=== PATIENT | female | born 1950 | race Caucasian/White ===

== ENCOUNTER 2016-08-20 09:18 | Outpatient (CLI) | payer OTHER ==
--- NOTE | 2016-08-21 07:04 | CT Report ---
CT OF THE CHEST WITHOUT CONTRAST: 08/20/2016 CLINICAL INDICATION: A 66-year-old asymptomatic patient with [id number] history, current smoker, for lung cancer screening. COMPARISON: 09/01/[address] TECHNIQUE: Axial CT images of the chest without contrast, utilizing low-dose screening technique. FINDINGS: The heart and great vessels demonstrate mild atherosclerotic calcification. No hilar or mediastinal lymphadenopathy is present. The lungs demonstrate emphysema and bronchiectasis. PULMONARY NODULES: Medial left lower lobe 5 x 5 mm (axial image 135), anterior left lower lobe 6 x 3 mm (axial image 139), lateral left lower lobe 4 x 4 mm ( axial image 139), lateral left lower lobe 6 x 6 mm (axial image 131), anterior left upper lobe 6 x 3 mm (axial image 101), posterior right upper lobe adjacent to the minor fissure 6 x 6 mm (axial image 87), posterolateral right lower lobe 3 x 3 mm (axial image 113). No effusion or pneumothorax is present. The osseous structures demonstrate degenerative changes. Limited evaluation of upper abdominal structures demonstrates normal adrenal glands. IMPRESSION: MULTIPLE BILATERAL SMALL PULMONARY NODULES. THE LARGEST, IN THE LEFT LOWER LOBE, MEASURES 6 MM AVERAGE DIAMETER. RECOMMENDATION: SIX-MONTH LOW DOSE CHEST CT, TO EVALUATE FOR INTERVAL CHANGE. LUNG RADS CATEGORY 3-PROBABLE BENIGN. In accordance with CT protocol optimization, one or more of the following dose reduction techniques were utilized for this exam: automated exposure control, adjustment of mA and/or KV based on patient size, or use of iterative reconstructive technique. JOB #: [id number] EXT JOB #: [id number] [facility]
== END 2016-08-20 09:19 | disposition home or self-care (01) ==
LOC: DI 09:18
PROVIDERS: ATTEND Internal Medicine
DX: Z12.2 Encounter for screening for malignant neoplasm of respiratory organs (principal); R91.8 Other nonspecific abnormal finding of lung field; F17.210 Nicotine dependence, cigarettes, uncomplicated; M85.88 Other specified disorders of bone density and structure, other site; N95.8 Other specified menopausal and perimenopausal disorders
CPT/HCPCS: 77080; G0297

== ENCOUNTER 2016-08-20 09:19 | Outpatient (CLI) | payer OTHER ==
--- NOTE | 2016-08-21 07:17 | DEXA Report ---
DEXA SCAN: 08/20/2016 CLINICAL INDICATION: Osteopenia. TECHNIQUE: Dual energy x-ray absorptiometry (DXA) was performed on a [employer] system. Regions measured are the AP spine, femoral neck, and, if needed, forearm. FINDINGS: The data for the lumbar spine is as follows: REGION BMD (g/cm/cm) T-SCORE Z-SCORE L1 1.164 0.3 2.2 L2 1.432 1.9 3.9 L3 1.514 2.6 4.6 L4 1.479 2.3 4.3 TOTAL 1.423 2.0 4.0 NOTE: All evaluable vertebrae are used for classification. The data for the hip is as follows: REGION BMD (g/cm/cm) T-SCORE Z-SCORE Neck 0.871 -1.2 0.6 TOTAL 0.903 -0.8 0.7 NOTE: The femoral neck or total proximal femur, whichever is lowest, is used for classification. IMPRESSION: THE WHO CLASSIFICATION BASED ON THE INTERNATIONAL REFERENCE STANDARD IS OSTEOPENIA (REFERENCE LEFT FEMORAL NECK). THE FRACTURE RISK IS INCREASED. RECOMMENDATION: Patients with diagnosis of osteoporosis or osteopenia should have regular bone mineral density assessment. For those eligible for Medicare, routine testing is allowed once every 2 years. Testing frequency can be increased for patients who have rapidly progressing disease or for those who are receiving medical therapy to restore bone mass. COMMENT: World Health Organization (WHO) definitions for osteoporosis and osteopenia: NORMAL BMD: T-score at -1.0 or higher, fracture risk is low. OSTEOPENIA BMD: T-score between -1.0 and -2.5, fracture risk is increased. OSTEOPOROSIS BMD: T-score at -2.5 or lower, fracture risk high. National Osteoporosis Foundation recommends: 1. Obtain adequate dietary calcium (at least 1200 mg per day) and vitamin D (400 -800 international units per day). 2. Participate, as appropriate, in regular weightbearing and muscle- strengthening exercise. 3. Avoid tobacco use and reduce alcohol and caffeine intake. 4. For more detailed information see the website at www.NOF.org. MTDD
== END 2016-08-20 09:20 | disposition home or self-care (01) ==
LOC: DI 09:19
PROVIDERS: ATTEND Internal Medicine
DX: M85.88 Other specified disorders of bone density and structure, other site (principal); N95.8 Other specified menopausal and perimenopausal disorders
CPT/HCPCS: 77080

== ENCOUNTER 2017-01-03 16:00 | Outpatient (CLI) | payer OTHER | END 2017-01-03 16:01 | disposition critical access hospital (66) | LOC: EMS 16:00 | PROVIDERS: ATTEND Surgery | DX: R10.9 Unspecified abdominal pain (principal); R11.2 Nausea with vomiting, unspecified; R19.7 Diarrhea, unspecified; M54.5 Low back pain | CPT/HCPCS: A0425; A0427 ==

== ENCOUNTER 2017-01-03 16:36 | Emergency (ER) | payer OTHER ==
--- NOTE | 2017-01-03 16:43 | ED Physician Documentation ---
PD HPI NVD - Stated complaint Stated Complaint: N/V/D - History obtained from History obtained from: Patient - History of Present Illness Timing - onset: Today Timing - details: Abrupt onset, Still present Associated symptoms: Abdominal pain (cramping associated with the vomiting and diarrhea episodes.), Loss of appetite. No: Hematemesis, Hematochezia, Near syncope / syncope Contributing factors: No: Sick contact (has had some mild URI symptoms for 1-2 days, and then yesterday felt malaise and myalgias. No fever.), Bad food, Travel , Recent antibiotics Improved by: Vomiting, BM Worsened by: Eating Similar symptoms before: Has not had sx before Recently seen: Not recently seen Review of Systems Constitutional: reports: Myalgias. denies: Fever, Chills Nose: reports: Rhinorrhea / runny nose, Congestion Throat: denies: Sore throat Respiratory: denies: Cough GI: reports: Abdominal Pain (cramping through the day), Nausea, Vomiting, Diarrhea Neurologic: reports: Generalized weakness. denies: Focal weakness, Numbness, Near syncope PD PAST MEDICAL HISTORY - Past Medical History Cardiovascular: None Respiratory: None Neuro: None Endocrine/Autoimmune: None GI: None - Present Medications Home Medications: Ambulatory Orders Medication Instructions Recorded Confirmed Diphenoxylate HCl/Atropine 1 each PO Q6H PRN #10 tablet 01/03/17 [Diphenoxylate-Atrop 2.5-0.025] Ondansetron Odt [Zofran] 4 mg TL Q6H PRN #15 tablet 01/03/17 - Allergies Allergies/Adverse Reactions: Allergies Allergy/AdvReac Type Severity Reaction Status Date / Time No Known Drug Allergies Allergy Verified 01/03/17 16:44 PD ED PE NORMAL - Vitals Vital signs reviewed: Yes - General General: Alert and oriented X 3, Well developed/nourished - HEENT HEENT: Ears normal, Pharynx benign. No: Moist mucous membranes - Neck Neck: Supple, no meningeal sign, No adenopathy - Cardiac Cardiac: RRR, No murmur - Respiratory Respiratory: Clear bilaterally - Abdomen Abdomen: Normal bowel sounds, Soft, Non distended, No organomegaly, Other ( tender mid abdomen without guarding nor percussion tender. Not focally tender RUQ/RLQ. ) - Female Female : Deferred - Rectal Rectal: Deferred - Derm Derm: Normal color, Warm and dry - Extremities Extremities: No deformity, Normal ROM s pain, No edema, No calf tenderness / cord - Neuro Neuro: Alert and oriented X 3, No motor deficit, Normal speech Results - Vitals Vitals: Vital Signs - 24 hr 01/03/17 01/03/17 16:40 18:11 Temperature 36.5 C Heart Rate 98 84 Respiratory 16 16 Rate Blood Pressure 127/78 138/75 H O2 Saturation 97 94 Oxygen O2 Source Room air - Labs Labs: Laboratory Tests 01/03/17 01/03/17 17:47 17:47 WBC 12.2 H RBC 3.88 L Hgb 13.7 Hct 39.1 MCV 100.9 H MCH 35.3 H MCHC 35.0 RDW 12.9 Plt Count 176 MPV 9.2 Neut # 11.0 H Lymph # 0.9 L [place] # 0.3 Eos # 0.0 Baso # 0.1 Absolute Nucleated RBC 0.00 Nucleated RBC % 0.0 Sodium 134 L Potassium 3.6 Chloride 100 L Carbon Dioxide 23 Anion Gap 11.0 BUN 10 Creatinine 0.5 Estimated GFR (MDRD) 123 Glucose 124 H Calcium 8.5 Magnesium 1.7 Total Bilirubin 0.7 AST 73 H ALT 45 Alkaline Phosphatase 64 Total Protein 7.2 Albumin 4.1 Globulin 3.1 Albumin/Globulin Ratio 1.3 Lipase 29 PD MEDICAL DECISION MAKING - ED course Complexity details: reviewed results, re-evaluated patient (much improved symptoms with fluids and meds. Recheck abd with minimal central tenderness, still none RLQ/RUQ nor any peritoneal signs. No distension. She is taking PO fluids well and says "it feels good to drink something". ), considered differential, d/w patient, d/w family Departure - Departure Disposition: 01 Home, Self Care Clinical Impression: Nausea vomiting and diarrhea, Gastroenteritis Condition: Stable Record reviewed to determine appropriate education?: Yes Instructions: ED Food Poison Or Gastroenteritis Follow-Up: Bong Johns MD [Provider Admit Priv/Credential] - Prescriptions: Diphenoxylate HCl/Atropine [Diphenoxylate-Atrop 2.5-0.025] 1 each PO Q6H PRN # 10 tablet PRN Reason: Diarrhea Ondansetron Odt [Zofran] 4 mg TL Q6H PRN #15 tablet PRN Reason: Nausea / Vomiting Comments: Small frequent fluids tonight and bland foods such as rice breads or positives. Progress diet tomorrow as able. Ondansetron if needed for nausea. Lomotil if needed for diarrhea Mira. Tylenol or ibuprofen if needed for pain. You can add the hydrocodone later if needed for cramping pain or diarrhea. Recheck if not better over the next couple of days. This particularly would mean persistent cramps or diarrhea or just general illness.This seems likely to be a viral illness that would last for 1-2 days. However if it lasts longer or he develop other symptoms, high fevers, bloody stool, more focused pain or any other concerns then recheck Discharge Date/Time: 01/03/17 19:00
[2017-01-03] MEDS ORDERED: SODIUM CHLORIDE 0.9% 1,000 ML IV ONE ×2 (16:56→16:57)
[2017-01-03] MEDS ORDERED: HYDROmorphone 0.5 MG/0.5 ML SYRINGE IVP STA (16:56)
[2017-01-03] MEDS ORDERED: ONDANSETRON 4 MG/2 ML VIAL IVP STA (16:56)
[2017-01-03] MEDS ORDERED: FAMOTIDINE 20 MG/50 ML 50 ML IV ONE (16:57)
[2017-01-03] MEDS ORDERED: KETOROLAC 60 MG/2 ML VIAL IVP STA (16:57)
[2017-01-03] MEDS ORDERED: HYDROmorphone 1 MG/ML SYRINGE ONE (17:06)
[2017-01-03] MEDS ORDERED: SODIUM CHLORIDE FLUSH 0.9% 10 ML SYRINGE IVP ONE ×2 (17:07)
[2017-01-03] MEDS ORDERED: KETOROLAC 30 MG/ML VIAL ONE (17:07)
[2017-01-03] MEDS ORDERED: ONDANSETRON 4 MG/2 ML VIAL ONE (17:07)
[2017-01-03] MEDS ORDERED: FAMOTIDINE 20 MG/2 ML VIAL ONE (17:07)
[2017-01-03 17:57] LABS: BASOPHILS # (AUTO) 0.1 10^3/uL (0.0-0.1); BASOPHILS % (AUTO) 0.7 %; HCT - HEMATOCRIT 39.1 % (37.0-47.0); HGB - HEMOGLOBIN 13.7 g/dL (12.0-16.0); LYMPHOCYTES # (AUTO) 0.9 10^3/uL (1.5-3.5); MEAN CORPUSCULAR HEMOGLOBIN 35.3 pg (27.0-31.0); MEAN CORPUSCULAR VOLUME 100.9 fL (81.0-99.0); MEAN PLATELET VOLUME 9.2 fL (7.9-10.8); MONOCYTES # (AUTO) 0.3 10^3/uL (0.0-1.0); MONOCYTES % (AUTO) 2.5 %; NEUTROPHILS % (AUTO) 89.8 %; RED BLOOD COUNT 3.88 10^6/uL (4.20-5.40); RED CELL DISTRIBUTION WIDTH 12.9 % (12.0-15.0); UNCORRECTED WHITE BLOOD COUNT 12.2 x10^3/uL; WHITE BLOOD COUNT 12.2 x10^3/uL (4.8-10.8)
[2017-01-03 18:09] LABS: ALBUMIN/GLOBULIN RATIO 1.3 (1.0-2.2); BILIRUBIN,TOTAL 0.7 mg/dL (0.2-1.0); CALCIUM 8.5 mg/dL (8.5-10.3); CREATININE 0.5 mg/dL (0.4-1.0); MAGNESIUM 1.7 mg/dL (1.7-2.8); POTASSIUM 3.6 mmol/L (3.5-5.0); TOTAL PROTEIN 7.2 g/dL (6.7-8.2)
[2017-01-03 18:11] VITALS: BP 138/75
[2017-01-03] MEDS ORDERED: DIPHENOX/ATROPINE 2.5/0.025 MG TABLET PO STA (18:40)
[2017-01-03] MEDS ORDERED: ONDANSETRON ODT 4 MG Prepack 2 TL PRN (18:40)
[2017-01-03] MEDS ORDERED: HYDROcod/ACET 5/325 Prepack 6 PO ONE ×2 (18:40→18:50)
[2017-01-03] MEDS ORDERED: DIPHENOX/ATROPINE 2.5/0.025 MG TABLET PO ONE (18:50)
[2017-01-03] MEDS ORDERED: ONDANSETRON ODT 4 MG Prepack 2 TL ONE (18:51)
== END 2017-01-03 19:00 | disposition home or self-care (01) ==
LOC: EDUNIT# → ED 16:36
DX: K52.9 Noninfective gastroenteritis and colitis, unspecified (principal)
CPT/HCPCS: 36415; 80053; 83690; 83735; 85025; 96365; 96375; 99284; A9270; J1170

== ENCOUNTER 2019-01-04 08:01 | Outpatient (CLI) | payer MEDICARE ==
[2019-01-04 10:21] LABS: BASOPHILS # (AUTO) 0.1 10^3/uL (0.0-0.1); EOSINOPHILS # (AUTO) 0.2 10^3/uL (0.0-0.7); EOSINOPHILS % (AUTO) 2.3 %; HGB - HEMOGLOBIN 14.6 g/dL (12.0-16.0); LYMPHOCYTES # (AUTO) 2.4 10^3/uL (1.5-3.5); LYMPHOCYTES % (AUTO) 26.5 %; MEAN CORPUSCULAR HEMOGLOBIN 34.1 pg (27.0-31.0); MEAN CORPUSCULAR HGB CONC 33.2 g/dL (32.0-36.0); MEAN CORPUSCULAR VOLUME 102.8 fL (81.0-99.0); MEAN PLATELET VOLUME 11.7 fL (7.9-10.8); MONOCYTES # (AUTO) 0.7 10^3/uL (0.0-1.0); MONOCYTES % (AUTO) 7.9 %; NEUTROPHILS # (AUTO) 5.6 10^3/uL (1.5-6.6); NEUTROPHILS % (AUTO) 61.9 %; PLT - PLATELET COUNT 208 10^3/uL (130-450); RED BLOOD COUNT 4.28 10^6/uL (4.20-5.40); RED CELL DISTRIBUTION WIDTH 14.6 % (12.0-15.0)
[2019-01-04 10:57] LABS: ALBUMIN 4.9 g/dL (3.2-5.5); ALBUMIN/GLOBULIN RATIO 1.4 (1.0-2.2); ALKALINE PHOSPHATASE 102 IU/L (42-121); ALT ALANINE AMINOTRANSFERASE 52 IU/L (10-60); AST ASPARTATE AMINOTRANSFERASE 64 IU/L (10-42); BUN - BLOOD UREA NITROGEN 13 mg/dL (6-20); CALCIUM 9.6 mg/dL (8.5-10.3); CARBON DIOXIDE - CO2 29 mmol/L (21-32); CHLORIDE 102 mmol/L (101-111); CHOL/HDL RATIO 2.3 (<4.4); CHOLESTEROL 220 mg/dL; CREATININE 0.6 mg/dL (0.4-1.0); GFR - MDRD 99 (>89); GLUCOSE 97 mg/dL (70-100); HDL CHOLESTEROL 94 mg/dL; LDL CHOLESTEROL,CALCULATED 113 mg/dL; LDL/HDL RATIO 1.2 (<4.4); SODIUM 143 mmol/L (135-145); TOTAL PROTEIN 8.3 g/dL (6.7-8.2); VLDL CHOLESTEROL 13 mg/dL
== END 2019-01-04 08:02 | disposition home or self-care (01) ==
LOC: LAB.S 08:01
PROVIDERS: ATTEND Physician Assistant Medical
DX: E78.5 Hyperlipidemia, unspecified (principal); R42 Dizziness and giddiness
CPT/HCPCS: 36415; 80053; 80061; 83721; 85025

== ENCOUNTER 2019-01-04 08:12 | Outpatient (CLI) | payer MEDICARE ==
--- NOTE | 2019-01-05 09:58 | Mammography Report ---
Reason: SELF REFERRING MAMMO Z12.31 Procedure Date: 01/04/2019 Accession Number: [id number] / [id number] Procedure: MGS - Screening Mammo Dig Bilat CPT Code: FULL RESULT: EXAM: Screening Mammo Dig Bilat DATE: 01/04/2019 8:41 AM CLINICAL HISTORY: Screening encounter. TECHNIQUE: (B) - Bilateral CC and MLO views were obtained. COMPARISON: 07/29/2015. PARENCHYMAL PATTERN: (A) - The breast(s) demonstrate(s) scattered fibroglandular densities. FINDINGS: In the right retroconal breast 3.2 cm from the nipple is a new 0.5 cm nodule, partially obscured with associated calcification which requires additional mammographic and ultrasound evaluation for characterization, 10:00 position. There are no suspicious masses, calcifications, or areas of distortion in the left breast. IMPRESSION: Incomplete examination. BI-RADS category 0. RECOMMENDATION: (ADDMU) - Additional views using both Mammography and Ultrasound recommended. Right breast. BI-RADS CATEGORY: (0) - Incomplete Examination - need additional evaluation. STANDARD QUALIFYING STATEMENTS: 1. This examination was reviewed with the aid of Computer-Aided Detection (CAD). 2. A negative or benign imaging report should not preclude biopsy if clinically suspicious findings are present. 3. Dense breasts may obscure an underlying neoplasm. 4. This examination was reviewed without the aid of 3D breast imaging (tomosynthesis).
== END 2019-01-04 08:13 | disposition home or self-care (01) ==
LOC: DI.S 08:12
DX: Z12.31 Encounter for screening mammogram for malignant neoplasm of breast (principal); R92.8 Other abnormal and inconclusive findings on diagnostic imaging of breast
CPT/HCPCS: 77067

== ENCOUNTER 2019-01-20 11:48 | Outpatient (CLI) | payer MEDICARE ==
--- NOTE | 2019-01-20 15:48 | Mammography Report ---
Reason: ABN MAMMO - SPEC VIEWS RT Procedure Date: 01/20/2019 Accession Number: [id number] / [id number] Procedure: BRIANNE - Diag Special Views Dig RT CPT Code: Final Report FULL RESULT: EXAM: Diag Special Views Dig RT, Breast Unilateral Limited DATE: 01/20/2019 1:14 PM CLINICAL HISTORY: Follow-up abnormal mammogram of 01/04/2019 COMPARISON: 01/04/2019 TECHNIQUE: (R) - Right CC and MLO views were obtained. FINDINGS: The right breast density described on the prior mammogram report almost completely dissipates on additional imaging. One punctate benign-appearing calcification is present. RIGHT BREAST ULTRASOUND: TECHNIQUE: Real-time scanning by the mixing plant dumper with saved static images reviewed. FINDINGS: Corresponding to the mammographic finding in the 10:00 position right breast 2 cm from the nipple there is a 4 x 3 x 2 mm hypoechoic well-circumscribed ovoid lesion with small echogenic vascular hilum consistent with a lymph node IMPRESSION: Benign findings. BI-RADS category 2. Right breast RECOMMENDATION: (ANNUAL) - Recommend routine annual screening mammography. BI-RADS CATEGORY: (2) - Benign Findings. STANDARD QUALIFYING STATEMENTS: 1. This examination was not reviewed with the aid of Computer-Aided Detection (CAD). 2. A negative or benign imaging report should not preclude biopsy if clinically suspicious findings are present. 3. Dense breasts may obscure an underlying neoplasm. 4. This examination was reviewed with the aid of 3D breast imaging (tomosynthesis).
== END 2019-01-20 11:49 | disposition home or self-care (01) ==
LOC: DI 11:48
PROVIDERS: ATTEND Physician Assistant Medical
DX: R92.8 Other abnormal and inconclusive findings on diagnostic imaging of breast (principal)
CPT/HCPCS: 76642

== ENCOUNTER 2019-07-21 02:56 | Outpatient (CLI) | payer MEDICARE | END 2019-07-21 02:57 | disposition EMS.NT | LOC: EMS 02:56 | PROVIDERS: ATTEND Surgery | DX: H57.12 Ocular pain, left eye (principal) ==

== ENCOUNTER 2019-10-03 09:25 | Outpatient (CLI) | payer MEDICARE | END 2019-10-03 23:59 | disposition home or self-care (01) | LOC: COV 09:25 | PROVIDERS: ATTEND Family Medicine | DX: R05 Cough (principal); M79.10 Myalgia, unspecified site; R68.83 Chills (without fever); J02.9 Acute pharyngitis, unspecified ==

== ENCOUNTER 2019-12-05 10:54 | Outpatient (CLI) | payer MEDICARE ==
[2019-12-05 16:06] LABS: H. PYLORIS ANTIGEN STL NEGATIVE (Negative)
== END 2019-12-05 10:55 | disposition home or self-care (01) ==
LOC: RT 10:54
PROVIDERS: ATTEND Surgery
DX: Z01.818 Encounter for other preprocedural examination (principal); R06.2 Wheezing; Z12.11 Encounter for screening for malignant neoplasm of colon
CPT/HCPCS: 81599; 87177; 87209; 87338; 93005

== ENCOUNTER 2019-12-07 12:22 | Day surgery (SDC) | payer MEDICARE ==
[2019-12-07] MEDS ORDERED: LACTATED RINGERS 1,000 ML IV ONE ×2 (12:57→15:34)
--- NOTE | 2019-12-07 13:26 | ANESTHESIA ---
Pre-Anesthesia VS, & Labs - Diagnosis screening, diarrhea - Procedure colonoscopy Vital Signs: Temp Pulse Resp BP Pulse Ox 36.2 C L 77 20 160/84 H 97 12/07/19 12:30 12/07/19 12:30 12/07/19 12:30 12/07/19 12:30 12/07/19 12:30 Height: 5 ft 7.5 in Weight (kg): 58.9 kg Body Mass Index: 20.0 BMI Classification: Healthy weight - NPO >8 hours - Is Patient ?: No - Lab Results Lab results reviewed: Yes Home Medications and Allergies Home Medications: Ambulatory Orders Atorvastatin Calcium 40 mg PO DAILY 11/30/19 Atorvastatin Calcium 40 mg PO DAILY 11/30/19 Allergies/Adverse Reactions: Allergies Allergy/AdvReac Type Severity Reaction Status Date / Time No Known Drug Allergies Allergy Verified 01/03/17 16:44 Anes History & Medical History - Anesthetic History Anesthesia Complications: reports: No previous complications Family history of Anesthesia Complications: Denies Family history of Malignant Hyperthermia: Denies - Medical History Cardiovascular: reports: None, Murmur Pulmonary: reports: None Gastrointestinal: reports: None Urinary: reports: None Musculoskeletal: reports: None Endocrine/Autoimmune: reports: None Smoking Status: Current every day smoker - Surgical History Neurologic: Craniotomy Orthopedic: ACL reconstruction Results - Echo Results Echo Results: Report reviewed Exam General: Alert, Oriented x3, Cooperative, No acute distress Dental: WNL Mouth Openin Fingerbreadth Neck Mobility: Normal Mallampati classification: I Respiratory: Lungs clear, Normal breath sounds, No respiratory distress, No accessory muscle use Cardiovascular: Regular rate, Normal S1, Normal S2, No murmurs Plan Anesthesia Type: MAC Consent for Procedure(s) Verified and Reviewed: Yes Code Status: Attempt Resuscitation ASA classification: 2-Mild systemic disease Is this case an emergency?: No
[2019-12-07] MEDS ORDERED: ONDANSETRON 4 MG/2 ML VIAL IVP PRN (13:27)
[2019-12-07] MEDS ORDERED: HYDROmorphone 0.5 MG/0.5 ML SYRINGE IVP PRN (13:27)
[2019-12-07] MEDS ORDERED: METOCLOPRAMIDE 10 MG/2 ML VIAL IVP PRN (13:27)
[2019-12-07] MEDS ORDERED: ATROPINE ABBOJECT 1 MG/10 ML SYRINGE IVP PRN (13:27)
[2019-12-07] MEDS ORDERED: NALOXONE 0.4 MG/ML VIAL IVP PRN (13:27)
[2019-12-07] MEDS ORDERED: fentaNYL 100 MCG/2 ML VIAL IVP PRN (13:27)
[2019-12-07] MEDS ORDERED: ePHEDrine 50 MG/ML VIAL IVP PRN (13:27)
[2019-12-07] MEDS ORDERED: MORPHINE 2 MG/ML CARPUJECT IVP PRN (13:27)
[2019-12-07] MEDS ORDERED: LACTATED RINGERS 1,000 ML IV SCH (14:00)
[2019-12-07 16:04] VITALS: BP 133/69
--- NOTE | 2019-12-07 16:04 | ANESTHESIA POST OP EVALUATION ---
Anesthesia Post Eval - Post Anesthesia Eval Vitals: Last Vital Signs Temp 36.6 C 12/07/19 15:34 Pulse 85 12/07/19 15:45 Resp 21 12/07/19 15:45 BP 134/73 H 12/07/19 15:45 Pulse Ox 96 12/07/19 15:45 CV Function Including HR & BP: positive: Stable Pain Control: positive: Satisfactory Nausea & Vomiting: positive: Negative Mental Status: positive: Baseline Respiratory Status: Airway Patent Hydration Status: Satisfactory Anesthesia Complications: positive: None
== END 2019-12-07 12:23 | disposition home or self-care (01) ==
LOC: SDS 12:22
PROVIDERS: ATTEND Surgery
PROC: 0DJD8ZZ Inspection of Lower Intestinal Tract, Via Natural or Artificial Opening Endoscopic (ICD-10-PCS; principal; 2019-12-07 13:30)
DX: K59.8 Other specified functional intestinal disorders (principal); K64.4 Residual hemorrhoidal skin tags; K64.8 Other hemorrhoids; R06.02 Shortness of breath; F17.210 Nicotine dependence, cigarettes, uncomplicated
CPT/HCPCS: 45378; J7120

== ENCOUNTER 2020-08-22 10:04 | Outpatient (CLI) | payer MEDICARE ==
[2020-08-22 15:16] LABS: BASOPHILS # (AUTO) 0.1 10^3/uL (0.0-0.1); EOSINOPHILS # (AUTO) 0.1 10^3/uL (0.0-0.7); EOSINOPHILS % (AUTO) 1.7 %; HCT - HEMATOCRIT 44.9 % (37.0-47.0); HGB - HEMOGLOBIN 14.7 g/dL (12.0-16.0); LYMPHOCYTES # (AUTO) 2.6 10^3/uL (1.5-3.5); LYMPHOCYTES % (AUTO) 31.2 %; MEAN CORPUSCULAR HGB CONC 32.7 g/dL (32.0-36.0); MEAN CORPUSCULAR VOLUME 103.9 fL (81.0-99.0); MEAN PLATELET VOLUME 12.6 fL (7.9-10.8); MONOCYTES # (AUTO) 0.6 10^3/uL (0.0-1.0); MONOCYTES % (AUTO) 7.5 %; NEUTROPHILS # (AUTO) 4.8 10^3/uL (1.5-6.6); NEUTROPHILS % (AUTO) 58.4 %; PLT - PLATELET COUNT 206 10^3/uL (130-450); RED BLOOD COUNT 4.32 10^6/uL (4.20-5.40); RED CELL DISTRIBUTION WIDTH 12.9 % (12.0-15.0); WHITE BLOOD COUNT 8.3 x10^3/uL (4.8-10.8)
[2020-08-22 15:33] LABS: ALBUMIN 4.5 g/dL (3.2-5.5); ALBUMIN/GLOBULIN RATIO 1.2 (1.0-2.2); ALKALINE PHOSPHATASE 133 IU/L (42-121); ALT ALANINE AMINOTRANSFERASE 72 IU/L (10-60); AST ASPARTATE AMINOTRANSFERASE 80 IU/L (10-42); BILIRUBIN,TOTAL 0.9 mg/dL (0.2-1.0); BUN - BLOOD UREA NITROGEN 11 mg/dL (6-20); CALCIUM 9.4 mg/dL (8.5-10.3); CARBON DIOXIDE - CO2 26 mmol/L (21-32); CHLORIDE 99 mmol/L (101-111); CHOL/HDL RATIO 4.1 (<4.4); CHOLESTEROL 268 mg/dL; CREATININE 0.6 mg/dL (0.4-1.0); GFR - MDRD 99 (>89); GLUCOSE 106 mg/dL (70-100); HDL CHOLESTEROL 65 mg/dL; LDL CHOLESTEROL,CALCULATED 174 mg/dL; LDL/HDL RATIO 2.7 (<4.4); POTASSIUM 3.5 mmol/L (3.5-5.0); SODIUM 138 mmol/L (135-145); TOTAL PROTEIN 8.2 g/dL (6.7-8.2); TRIGLYCERIDES 145 mg/dL; VLDL CHOLESTEROL 29 mg/dL
[2020-08-22 15:39] LABS: THYROID STIMULATING HORMONE 5.42 uIU/mL (0.34-5.60)
== END 2020-08-22 10:05 | disposition home or self-care (01) ==
LOC: LAB.S 10:04
PROVIDERS: ATTEND Registered Nurse
DX: N71.1 Chronic inflammatory disease of uterus (principal); R19.7 Diarrhea, unspecified; R06.02 Shortness of breath; I10 Essential (primary) hypertension; E78.5 Hyperlipidemia, unspecified; F17.200 Nicotine dependence, unspecified, uncomplicated
CPT/HCPCS: 36415; 80053; 80061; 83721; 84443; 85025

== ENCOUNTER 2020-10-10 11:06 | Outpatient (CLI) | payer MEDICARE ==
--- NOTE | 2020-10-10 15:55 | XRAY Report ---
PROCEDURE: Abdomen 2 View X-Ray INDICATIONS: ABD MASS TECHNIQUE: 2 views of the abdomen were acquired. COMPARISON: Pelvic ultrasound 11/22/2019 FINDINGS: Surgical changes and devices: None. Bowel: No pneumoperitoneum. The bowel gas pattern is normal. Soft tissues: Hepatic shadow appears enlarged. Calcification is noted within the pelvis suggestive of calcified fibroid. Bones: No suspicious bony abnormalities. IMPRESSION: Calcified mass within the pelvis suggestive of calcified fibroid. It is noted fibroids w ere noted on prior ultrasound although much smaller in size. CT abdomen and pelvis with contrast is r ecommended for further evaluation. Reviewed by: Krystal Weaver MD on 10/10/2020 3:54 PM PDT Approved by: Krystal Weaver MD on 10/10/2020 3:54 PM PDT Station ID: [id number]
== END 2020-10-10 11:07 | disposition home or self-care (01) ==
LOC: DI.S 11:06
PROVIDERS: ATTEND Registered Nurse
DX: R19.00 Intra-abdominal and pelvic swelling, mass and lump, unspecified site (principal)

== ENCOUNTER 2020-10-31 08:59 | Outpatient (CLI) | payer MEDICARE ==
[2020-10-31] MEDS ORDERED: IOPAMIDOL-300 100 ML VIAL ONE (09:09)
[2020-10-31] MEDS ORDERED: IOVERSOL 320 50 ML VIAL ONE (09:09)
[2020-10-31 09:39] LABS: CREATININE 0.7 mg/dL (0.4-1.0)
[2020-10-31] MEDS ORDERED: IOVERSOL 320 50 ML VIAL PO ONE (10:33)
[2020-10-31] MEDS ORDERED: IOPAMIDOL-300 100 ML VIAL IVP ONE (10:34)
--- NOTE | 2020-10-31 15:47 | CT Report ---
PROCEDURE: Abdomen/Pelvis W INDICATIONS: ABD MASS CONTRAST: IV CONTRAST: Isovue 300 ml: 100 PO CONTRAST: Optiray 320 ml50 TECHNIQUE: After the administration of IV and by mouth contrast, 5 mm thick sections acquired from the diaphragm s to the symphysis. 5 mm thick coronal and sagittal reformats were acquired. For radiation dose red uction, the following was used: automated exposure control, adjustment of mA and/or kV according to patient size. COMPARISON: CT chest 08/20/2016 FINDINGS: Image quality: Excellent. ABDOMEN: Lung bases: Lung bases the majority 4 mm nodule in the posterior lateral right lower lobe series 4 i mage 9. Immediately posterior to this focus a second nodule is identified measuring 3 mm. Within the left posterior lateral lobe there is a 8 mm nodule on series 4 image 27. A similar-appearing second n odule also within the posterior lateral left lower lobe measuring 6 mm seen on series 4 image 22. Jux ta fissural nodule is noted on the left measuring 5 mm on series 4 image 24. 2 mm nodule is present p osterior left lower lobe series 4 image 26. Nodules appear unchanged compared to 08/20/2016. Heart size is normal. Solid organs: Liver is enlarged measuring 22.3 cm. Hepatic steatosis is present. However, in additio n in the posterior lateral inferior right hepatic lobe most notably seen on series 3 images 38 throug h 55, there is heterogeneous infiltrative appearance of the hepatic parenchyma. The confluent area me asures approximately 9.9 cm AP by 8.5 cm transverse by 1.1 cm craniocaudal. Gallbladder is not visual ized. Biliary system is non dilated. Pancreas enhances normally. No adrenal nodules. Kidneys demo nstrate normal size and enhancement, without hydronephrosis. Peritoneum and bowel: Bowel loops demonstrate normal wall thickness and caliber. No free fluid or a ir. Nodes and vessels: No retroperitoneal or mesenteric adenopathy by size criteria. Aorta and inferior vena cava are normal in size. Miscellaneous: No ventral hernias. PELVIS: Genitourinary: Bladder wall thickness is normal. Prominent calcification within the lower uterus costa ggestive of large fibroid. Prominent vascularity is noted within the lower pelvis. Miscellaneous: No inguinal hernias or adenopathy. Bones: No suspicious bony lesions. No vertebral body compression fractures. IMPRESSION: 1. Hepatomegaly with steatosis. In addition, there is an infiltrative appearance of heterogeneous att enuation/enhancement within the lateral inferior right hepatic lobe as to described above. While this could represent alterations in fatty infiltration/fat sparing, further investigation to exclude infi ltrative hepatic neoplasm is with MRI hepatic protocol is highly recommended. 2. Multiple pulmonary nodules, stable compared to 2017 and likely benign. 3. Uterine calcifications suggestive of fibroid. 4. Prominent pelvic vascular calcifications which can be seen with vascular congestion syndrome. Reviewed by: Krystal Weaver MD on 10/31/2020 3:46 PM PDT Approved by: Krystal Weaver MD on 10/31/2020 3:46 PM PDT Station ID: [id number]
== END 2020-10-31 09:00 | disposition home or self-care (01) ==
LOC: DI 08:59
PROVIDERS: ATTEND Registered Nurse
DX: K76.0 Fatty (change of) liver, not elsewhere classified (principal); R91.8 Other nonspecific abnormal finding of lung field; N85.8 Other specified noninflammatory disorders of uterus; I70.90 Unspecified atherosclerosis
CPT/HCPCS: 36415; 74177; 82565; Q9967

== ENCOUNTER 2020-11-19 13:35 | Outpatient (CLI) | payer MEDICARE | END 2020-11-19 13:36 | disposition home or self-care (01) | LOC: COV 13:35 | PROVIDERS: ATTEND Physician Assistant | DX: Z01.812 Encounter for preprocedural laboratory examination (principal); Z20.822 Contact with and (suspected) exposure to COVID-19 ==

== ENCOUNTER 2020-12-03 12:47 | Outpatient (CLI) | payer MEDICARE ==
[2020-12-03] MEDS ORDERED: GADOBUTROL 7.5 MMOL/7.5 ML VIAL ONE (13:16)
[2020-12-03 14:00] LABS: CREATININE 0.6 mg/dL (0.4-1.0)
== END 2020-12-03 12:48 | disposition home or self-care (01) ==
LOC: DI 12:47
PROVIDERS: ATTEND Registered Nurse
DX: R93.89 Abnormal findings on diagnostic imaging of other specified body structures (principal); Z53.9 Procedure and treatment not carried out, unspecified reason
CPT/HCPCS: 36415; 82565

== ENCOUNTER 2020-12-05 11:12 | Outpatient (CLI) | payer MEDICARE ==
[~2020-12-05 11:12] MED LIST: GADOBUTROL 7.5 MMOL/7.5 ML VIAL ONE
--- NOTE | 2020-12-05 14:10 | MRI Report ---
PROCEDURE: Abdomen W/WO INDICATIONS: LIVER LESION CONTRAST: IV CONTRAST: Gadavist ml: 5.9 TECHNIQUE: Coronal ultra fast SE, axial 2D spoiled GE in- and [id number]; axial breath-hold T2 fast SE. Dynam ic axial ultra fast GE during the administration of contrast; post-contrast coronal ultra fast GE or 2D spoiled GE with fat saturation from the hepatic dome to the iliac crests. Optional diffusion weig hted imaging and ADC may be performed. COMPARISON: CT abdomen pelvis 10/31/2020 FINDINGS: Image quality: Excellent. Lung bases: No basal pleural effusions. Heart size is normal. Solid organs: The liver is enlarged, particularly the caudal right hepatic lobe. The liver measures 23.2 cm in craniocaudal dimension. Mild parenchymal heterogeneity is present on T1 out of phase imagi ng at the liver dome, lateral left hepatic lobe, and markedly in the caudal right hepatic lobe where there are irregular, geographic, ill-defined areas of T1 signal loss. Aside from minor capsular bulgi ng, there is no mass effect related to these areas. Normal vessels course through these areas without diversion. No abnormal biliary dilatation. No increased enhancement in these areas, but rather sligh t hypoenhancement due to signal loss from fat saturation. There is no suspicious arterially enhancing liver lesion. There is a small bilobed cyst in the subcap sular segment VII towards the liver dome. No other liver lesions. The spleen is normal size. Gallbladder is normal. Biliary system is non dilated. Pancreas is shonda l in morphology. No adrenal nodules. Both kidneys demonstrate normal size and enhancement, without hydronephrosis. Nodes and vessels: No retroperitoneal or mesenteric adenopathy by size criteria. Aorta and inferior vena cava are normal in size. Bowel and peritoneum: Unenhanced bowel loops are normal in caliber. No free fluid. Bones and soft tissues: No ventral hernias. Bone marrow is normal in overall signal. IMPRESSION: 1. Hepatomegaly. 2. Benign hepatic parenchymal heterogeneity with varying degrees of steatosis in a geographic pattern , predominantly involving segments V and . Reviewed by: Destiny Fabian MD on 12/05/2020 2:09 PM PDT Approved by: Destiny Fabian MD on 12/05/2020 2:09 PM PDT Station ID: [id number]
[2020-12-05] MEDS ORDERED: GADOBUTROL 7.5 MMOL/7.5 ML VIAL IVP ONE (16:59)
== END 2020-12-05 11:13 | disposition home or self-care (01) ==
LOC: DI 11:12
PROVIDERS: ATTEND Registered Nurse
DX: K76.0 Fatty (change of) liver, not elsewhere classified (principal)
CPT/HCPCS: 74183; A9585

== ENCOUNTER 2022-01-19 08:00 | Outpatient (CLI) | payer MEDICARE ==
--- NOTE | 2022-01-19 16:01 | XRAY Report ---
PROCEDURE: Chest 2 View X-Ray INDICATIONS: ACUTE COUGH TECHNIQUE: 2 view(s) of the chest. COMPARISON: CT chest dated 08/20/2016. FINDINGS: Surgical changes and devices: None. Lungs and pleura: No pleural effusions or pneumothorax. Lungs are clear. Mediastinum: Mediastinal contours are normal. Heart size is normal. Bones and chest wall: No suspicious bony abnormalities. Soft tissues appear unremarkable. IMPRESSION: No acute cardiopulmonary pathology. Reviewed by: Cruz Reich MD on 01/19/2022 3:59 PM PDT Approved by: Cruz Reich MD on 01/19/2022 3:59 PM PDT Station ID: [id number]
== END 2022-01-19 23:59 | disposition home or self-care (01) ==
LOC: DI.S 08:00
PROVIDERS: ATTEND Physician Assistant
DX: R05.1 Acute cough (principal); F17.200 Nicotine dependence, unspecified, uncomplicated

== ENCOUNTER 2022-01-23 13:02 | Outpatient (CLI) | payer MEDICARE | END 2022-01-23 13:03 | disposition critical access hospital (66) | LOC: EMS 13:02 | DX: R06.02 Shortness of breath (principal); R50.9 Fever, unspecified; R05.9 Cough, unspecified; R11.2 Nausea with vomiting, unspecified | CPT/HCPCS: A0425; A0429 ==

== ENCOUNTER 2022-01-23 13:35 | Inpatient (IN) | payer MEDICARE ==
--- NOTE | 2022-01-23 13:36 | ED Physician Documentation ---
PD HPI DYSPNEA - Stated complaint Stated Complaint: SOA - History obtained from History obtained from: Patient, EMS - History of Present Illness Timing - onset: How many weeks ago (2-3) Timing - onset during: Light activity Timing - duration: Weeks (2-3) Timing - details: Gradual onset, Still present Inciting event(s): URI (The patient has had a cough productive of clear sputum with dyspnea chills and malaise for 2 to 3 weeks. Seen 4 days ago in walk-in and treated with Zithromax, prednisone and an inhaler. She states she only use the inhaler twice as she felt she did not have the technique. No improvement.) Improved by: Rest Worsened by: Exertion, Coughing Associated symptoms: Cough. No: Hemoptysis, Wheezing (barking cough), Palpitations, Bilateral edema Similar symptoms before: Has not had sx before Recently seen: Clinic (Seen in walk-in clinic 4 days ago and again today. No improvement in symptoms. Had chest x-ray 4 days ago. Noted to be hypoxic at 84% at walk-in today and sent by EMS up here.) Review of Systems Constitutional: reports: Chills, Myalgias. denies: Fever Nose: reports: Congestion. denies: Rhinorrhea / runny nose Throat: denies: Sore throat Cardiac: denies: Chest pain / pressure, Palpitations, Pedal edema Respiratory: reports: Dyspnea, Cough GI: denies: Abdominal Pain, Nausea, Vomiting, Diarrhea Skin: denies: Rash, Lesions Neurologic: reports: Generalized weakness. denies: Altered mental status PD PAST MEDICAL HISTORY - Past Medical History Cardiovascular: None, Murmur Respiratory: None (No prior diagnosis of COPD but does have a long smoking history. Does have exertional dyspnea at times prior to this illness. Presumed COPD at walk-in 4 days ago.), COPD (likely but not formally Dx.) Neuro: Other (prior brain surgery (coiling of aneurysm) several years ago.) Endocrine/Autoimmune: None GI: None : None HEENT: Chronic vision loss, Other Psych: Depression, Anxiety Musculoskeletal: None - Past Surgical History Past Surgical History: No Ortho: ACL reconstruction Neuro: Craniotomy - Present Medications Home Medications: Ambulatory Orders Medication Instructions Recorded Confirmed Atorvastatin Calcium 40 mg PO DAILY 11/30/19 11/30/19 - Allergies Allergies/Adverse Reactions: Allergies Allergy/AdvReac Type Severity Reaction Status Date / Time No Known Drug Allergies Allergy Verified 01/23/22 13:50 - Social History Does the pt smoke?: No Smoking Status: Current every day smoker PD ED PE NORMAL - Vitals Vital signs reviewed: Yes - General General: Alert and oriented X 3, No acute distress (Repetitive cough that is very barky here in the ER. Interrupts her sentences.), Well developed/nourished - HEENT HEENT: Ears normal, Pharynx benign - Neck Neck: Supple, no meningeal sign - Cardiac Cardiac: RRR, No murmur - Respiratory Respiratory: No: Clear bilaterally (no coarse sounds. Some exp wheezing. Barking cough. ) - Abdomen Abdomen: Soft, Non tender - Derm Derm: Normal color, Warm and dry - Extremities Extremities: No tenderness to palpate, No edema, No calf tenderness / cord - Neuro Neuro: Alert and oriented X 3, No motor deficit, Normal speech Eye Opening: Spontaneous Motor: Obeys Commands Verbal: Oriented GCS Score: 15 Results - Vitals Vitals: Vital Signs - 24 hr 01/23/22 01/23/22 01/23/22 13:47 14:28 14:50 Temperature 36.7 C Heart Rate 100 92 Respiratory 20 22 Rate Blood Pressure 149/96 H O2 Saturation 90 L 85 L If not protocol 2 : Oxygen Flow, liters/minute 01/23/22 16:01 Temperature Heart Rate 95 Respiratory 16 Rate Blood Pressure 140/72 H O2 Saturation 93 If not protocol : Oxygen Flow, liters/minute Oxygen O2 Source Nasal cannula Oxygen Flow Rate 2 - Labs Labs: Laboratory Tests 01/23/22 01/23/22 01/23/22 14:10 14:10 14:10 WBC 8.1 RBC 4.05 L Hgb 14.2 Hct 42.6 MCV 105.2 H MCH 35.1 H MCHC 33.3 RDW 13.7 Plt Count 172 MPV 10.4 Neut # (Auto) 5.5 Lymph # (Auto) 1.8 [place] # (Auto) 0.7 Eos # (Auto) 0.1 Baso # (Auto) 0.0 Absolute Nucleated RBC 0.00 Nucleated RBC % 0.0 Sodium 134 L Potassium 3.5 Chloride 94 L Carbon Dioxide 28 Anion Gap 12.0 BUN 11 Creatinine 0.7 Estimated GFR (MDRD) 82 L Glucose 114 H Calcium 8.9 Magnesium 1.9 Total Bilirubin 0.4 AST 77 H ALT 76 H Alkaline Phosphatase 165 H B-Natriuretic Peptide 226 H Total Protein 7.6 Albumin 4.2 Globulin 3.4 Albumin/Globulin Ratio 1.2 Lipase 39 - Rads (name of study) chest xray Radiology: Prelim report reviewed (hyperinflated, no infiltrates.), See rad report PD MEDICAL DECISION MAKING - ED course Complexity details: re-evaluated patient (She has less barking cough now after nebulizer treatments and steroids. However taking her off oxygen leads to desaturation to 85% with an 2 to 3 minutes. Resuming oxygen back to 93 to 95%.), considered differential, d/w patient, d/w family (spouse) ED course: The patient has no formal diagnosis of COPD but is a longtime smoker and hyperinflated on chest x-ray with wheezing and hypoxia in the setting of a recent URI. She has a barking cough that sounds almost croup-like. Her respiratory panel PCR is still pending but I presume its likely to be RSV but the results are still pending. No pneumonia. However she is still hypoxic and needs hospitalization for further treatment. Departure - Departure Disposition: 66 [facility] DC/Xfer Clinical Impression: COPD exacerbation, Lower respiratory infection, Hypoxia Condition: Stable Record reviewed to determine appropriate education?: Yes
[2022-01-23] MEDS ORDERED: IPRATROPIUM/ALBUTEROL 3 ML NEB INH STA (14:03)
[2022-01-23] MEDS ORDERED: BENZONATATE 100 MG CAPSULE PO STA (14:04)
[2022-01-23] MEDS ORDERED: DEXAMETHASONE 10 MG/ML VIAL IVP STA (14:04)
[2022-01-23 14:16] LABS: BASOPHILS % (AUTO) 0.4 %; EOSINOPHILS # (AUTO) 0.1 10^3/uL (0.0-0.7); EOSINOPHILS % (AUTO) 0.7 %; HCT - HEMATOCRIT 42.6 % (37.0-47.0); HGB - HEMOGLOBIN 14.2 g/dL (12.0-16.0); LYMPHOCYTES # (AUTO) 1.8 10^3/uL (1.5-3.5); LYMPHOCYTES % (AUTO) 22.4 %; MEAN CORPUSCULAR HEMOGLOBIN 35.1 pg (27.0-31.0); MEAN CORPUSCULAR HGB CONC 33.3 g/dL (32.0-36.0); MEAN CORPUSCULAR VOLUME 105.2 fL (81.0-99.0); MEAN PLATELET VOLUME 10.4 fL (7.9-10.8); MONOCYTES # (AUTO) 0.7 10^3/uL (0.0-1.0); MONOCYTES % (AUTO) 8.7 %; NEUTROPHILS # (AUTO) 5.5 10^3/uL (1.5-6.6); NEUTROPHILS % (AUTO) 67.4 %; PLT - PLATELET COUNT 172 10^3/uL (130-450); RED BLOOD COUNT 4.05 10^6/uL (4.20-5.40); RED CELL DISTRIBUTION WIDTH 13.7 % (12.0-15.0); WHITE BLOOD COUNT 8.1 x10^3/uL (4.8-10.8)
[2022-01-23 14:29] LABS: ALBUMIN 4.2 g/dL (3.2-5.5); ALBUMIN/GLOBULIN RATIO 1.2 (1.0-2.2); BILIRUBIN,TOTAL 0.4 mg/dL (0.2-1.0); CALCIUM 8.9 mg/dL (8.5-10.3); CREATININE 0.7 mg/dL (0.4-1.0); MAGNESIUM 1.9 mg/dL (1.7-2.8); POTASSIUM 3.5 mmol/L (3.5-5.0); TOTAL PROTEIN 7.6 g/dL (6.7-8.2)
--- NOTE | 2022-01-23 14:32 | XRAY Report ---
PROCEDURE: Chest 1 View X-Ray INDICATIONS: cough for 2 weeks, worsening TECHNIQUE: One view of the chest was acquired. COMPARISON: 01/19/2022 FINDINGS: Surgical changes and devices: None. Lungs and pleura: No pleural effusions or pneumothorax. Mild increased bronchial vascular markings i n bilateral hilar region are seen with mild bronchial wall thickening. No focal infiltrate Mediastinum: Mediastinal contours appear normal. Heart size is normal. Bones and chest wall: No suspicious bony lesions. Overlying soft tissues appear unremarkable. IMPRESSION: 1. Suggestion of mild reactive airway disease such as bronchitis or asthma. No focal infiltrate. No p leural effusion or pneumothorax. Reviewed by: Cruz Reich MD on 01/23/2022 2:30 PM PDT Approved by: Cruz Reich MD on 01/23/2022 2:30 PM PDT Station ID: [id number]
[2022-01-23] MEDS ORDERED: ACETAMINOPHEN 325 MG TABLET PO PRN (16:41)
[2022-01-23] MEDS ORDERED: ONDANSETRON 4 MG/2 ML VIAL IVP PRN (16:41)
[2022-01-23] MEDS ORDERED: NICOTINE 14 MG PATCH TOP STA (16:49)
[2022-01-23] MEDS ORDERED: guaiFENesin/CODEINE 5 ML UDC PO STA (16:50)
[2022-01-23 17:21] LABS: INR 0.9 (0.8-1.2); PT - PROTHROMBIN TIME 10.3 secs (9.9-12.6)
[2022-01-23 17:26] LABS: B. PARAPERTUSSIS- RESP PCR PAN NOT DETECTED; B. PERTUSSIS- RESP PCR PANEL NOT DETECTED; C. PNEUMONIAE- RESP PCR PANEL NOT DETECTED; CORONAVIRUS 229E-RESP PCR NOT DETECTED; CORONAVIRUS HKU1-RESP PCR NOT DETECTED; CORONAVIRUS NL63-RESP PCR NOT DETECTED; CORONAVIRUS OC43-RESP PCR NOT DETECTED; HUMAN METAPNEUMOVIRUS NOT DETECTED; INFLUENZA A- RESP PCR PANEL NOT DETECTED; INFLUENZA B - RESP PCR PANEL NOT DETECTED; M. PNEUMONIAE- RESP PCR PANEL NOT DETECTED; PARAINFLUENZA VIRUS 1 NOT DETECTED; PARAINFLUENZA VIRUS 2 NOT DETECTED; PARAINFLUENZA VIRUS 3 NOT DETECTED; PARAINFLUENZA VIRUS 4 NOT DETECTED; RHINOVIRUS/ENTEROVIRUS NOT DETECTED; RSV- RESP PCR PANEL NOT DETECTED; SARS-CoV-2 -RESP PCR PANEL NOT DETECTED
[2022-01-23] MEDS ORDERED: IPRATROPIUM/ALBUTEROL 3 ML NEB INH PRN (17:31)
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
[2022-01-23] MEDS ORDERED: LORazepam 2 MG/ML VIAL IVP PRN (17:56)
[2022-01-23] MEDS: cefTRIAXone 2 GM in SODIUM CHLORIDE 0.9% MINIBAG 100 ML IV SCH (18:15)
[2022-01-23] MEDS: SODIUM CHLORIDE FLUSH 0.9% 10 ML SYRINGE IVP SCH (18:15)
[2022-01-23] MEDS: SODIUM CHLORIDE 0.9% 1,000 ML IV SCH (18:15)
--- NOTE | 2022-01-23 18:43 | PHARMACY PROGRESS NOTE ---
- Best Possible Medication History Admit Date and Time: 01/23/22 1641 Processed by: Pharmacy Medication History completed: Yes Patient Interview: Completed Secondary Source(s): Insurance records As the person ultimately responsible for medication therapy, providers are able to order a medication from an existing home medication list in [facility] via the "Reconcile Routine" prior to Confirmation of that medication by systems support specialist. Such practice is discouraged except when the physician, in their clinical judgment, deems that a medical need exists for a medication without regard to previous use.
[2022-01-23] MEDS: IPRATROPIUM/ALBUTEROL 3 ML NEB INH SCH ×2 (18:46→19:12)
[2022-01-23] MEDS: BUDESONIDE 0.5 MG/2 ML NEB INH SCH (18:46)
[2022-01-23] MEDS: guaiFENesin/CODEINE 5 ML UDC PO PRN (20:12)
[2022-01-23] MEDS: methylPREDNISolone SUCCINATE 40 MG/ML VIAL IVP SCH (21:05)
[2022-01-23] MEDS: guaiFENesin 600 MG TABLET PO SCH (21:06)
[2022-01-23] MEDS: MONTELUKAST 10 MG TABLET PO SCH (21:06)
[2022-01-23] MEDS: chlordiazePOXIDE 5 MG CAPSULE PO SCH (21:06)
[2022-01-24] MEDS: guaiFENesin/CODEINE 5 ML UDC PO PRN ×4 (03:23→21:23)
[2022-01-24] MEDS: SODIUM CHLORIDE FLUSH 0.9% 10 ML SYRINGE IVP SCH ×3 (04:02→16:39)
[2022-01-24] MEDS: SODIUM CHLORIDE 0.9% 1,000 ML IV SCH ×2 (04:35→17:54)
[2022-01-24] MEDS: methylPREDNISolone SUCCINATE 40 MG/ML VIAL IVP SCH ×3 (05:02→21:23)
[2022-01-24 05:38] LABS: BASOPHILS % (AUTO) 0.2 %; EOSINOPHILS % (AUTO) 0.2 %; HCT - HEMATOCRIT 37.9 % (37.0-47.0); LYMPHOCYTES # (AUTO) 0.8 10^3/uL (1.5-3.5); MEAN CORPUSCULAR HEMOGLOBIN 36.3 pg (27.0-31.0); MEAN CORPUSCULAR HGB CONC 34.3 g/dL (32.0-36.0); MEAN CORPUSCULAR VOLUME 105.9 fL (81.0-99.0); MEAN PLATELET VOLUME 11.2 fL (7.9-10.8); MONOCYTES # (AUTO) 0.1 10^3/uL (0.0-1.0); NEUTROPHILS # (AUTO) 5.6 10^3/uL (1.5-6.6); PLT - PLATELET COUNT 174 10^3/uL (130-450); RED BLOOD COUNT 3.58 10^6/uL (4.20-5.40); RED CELL DISTRIBUTION WIDTH 13.7 % (12.0-15.0); WHITE BLOOD COUNT 6.6 x10^3/uL (4.8-10.8)
[2022-01-24 05:48] LABS: ALBUMIN 3.7 g/dL (3.2-5.5); BILIRUBIN,DIRECT 0.1 mg/dL (0.1-0.5); BILIRUBIN,TOTAL 0.5 mg/dL (0.2-1.0); CALCIUM 8.3 mg/dL (8.5-10.3); CREATININE 0.5 mg/dL (0.4-1.0); MAGNESIUM 2.4 mg/dL (1.7-2.8); POTASSIUM 3.9 mmol/L (3.5-5.0)
[2022-01-24] MEDS: BUDESONIDE 0.5 MG/2 ML NEB INH SCH ×2 (07:36→19:00)
[2022-01-24] MEDS: IPRATROPIUM/ALBUTEROL 3 ML NEB INH SCH ×4 (07:36→19:00)
[2022-01-24] MEDS: cefTRIAXone 2 GM in SODIUM CHLORIDE 0.9% MINIBAG 100 ML IV SCH (09:07)
[2022-01-24] MEDS: chlordiazePOXIDE 5 MG CAPSULE PO SCH ×2 (09:08→21:23)
[2022-01-24] MEDS: AZITHROMYCIN 250 MG TABLET PO SCH ×2 (09:08→09:14)
[2022-01-24] MEDS: guaiFENesin 600 MG TABLET PO SCH ×2 (09:09→21:23)
[2022-01-24] MEDS: ENOXAPARIN 40 MG/0.4 ML SYRINGE SUBQ SCH (09:09)
[2022-01-24] MEDS: THIAMINE 100 MG TABLET PO SCH (09:22)
[2022-01-24] MEDS: NICOTINE 14 MG PATCH TOP SCH (09:24)
--- NOTE | 2022-01-24 13:00 | PROVIDER PROGRESS NOTE ---
Hospitalist Cross-cover Note - Cross-Cover Note Cross-Cover Note: As a Board-certified Engineering Inspector, credentialed to interpret Echoes here, I performed a complete bedside Echo. Indication: V. tach. The Echo showed: Moderate left atrial enlargement and moderate right atrial enlargement. Normal aortic root diameter. Normal left ventricular size with upper limit of normal wall thickness, normal LV contractility with EF 60%. A senile sigmoid septum is noted (normal variant). Diastolic function could not be determined. Normal right ventricular size and wall thickness. Normal right ventricular contractility. Myxomatous thickening of both mitral leaflets is seen with moderate mitral valve prolapse but no flail portions. Doppler exam reveals severe mitral regurgitation which is eccentric, laterally directed, and curls around and fills the entire dilated left atrium. Tricuspid valve appears structurally normal. Aortic valve is trileaflet and mildly thickened. Pulmonic valve poorly seen. These valves have normal function by Doppler. No pericardial effusion.
--- NOTE | 2022-01-24 13:01 | PROVIDER PROGRESS NOTE ---
Assessment/Plan - Problem List (1) Acute respiratory failure with hypoxia Assessment/Plan: The impression was that her hypoxia is caused by her COPD exacerbation. But, given her mildly elevated BNP, my concern is for some component of CHF as well. Will continue with supplemental O2 and treat the underlying COPD, keeping sats >88%. She may be a future candidate for home O2 which was discussed with her to consider. An Echo will be done today to evaluate for systolic heart failure. (2) COPD exacerbation Conclusion/Plan: Patient had severe wheezing and severely poor air movement yesterday, which has improved to minimal wheezing and slightly improved air mvm today. There are no infiltrates on chest x-ray but she has bronchitis by clinical picture. Will continue with nebulized bronchodilators every 4 hours as needed and 4 times daily scheduled. Will give Pulmicort via nebulizer twice daily. She is on IV Solumedrol 80 mg 3 times daily. We are give empiric antibiotics, 1 more dose of Zithromax, that she was due for, plus giving IV ceftriaxone empirically. Continue supplemental oxygen, weaning down as tolerated. Importance of smoking cessation was discussed with the patient. (3) VTach Conclusion/Plan: She had a 25-beat run of monomorphic VT at a rate of 115. She did not feel it; she was walking to the bathroom at the time, with the aide of her RN. Today she disclosed to me that she gets palpitations that occur at any time, they do not cause dizziness and she has never had syncope. She has never had them worked up. She then reminds me that heart disease runs in the family (father had multiple heart attacks, 2 sisters have heart disease). She then gave me permission to call her twin sister and this sister's (Juana and Emigdio Alcaraz) to get more information about her and the family, because she cannot remember details. I called them at home ([phone]). I spoke to them both. This sister has cardiomyopathy with normal coronary arteries and has a BiV ICD and another sister has a "stiff heart" and sevreal uncles plus their dad had heart attacks. Will obtain an Echo stat. Will check troponins today and also assure that her potassium and magnesium are within normal range. Continue to monitor on telemetry. (4) Tobacco use Conclusion/Plan: She is a heavy smoker of 2PPD. Importance of smoking cessation was discussed with the patient at admission She is getting a nicotine patch while she is here (5) Elevated LFTs Conclusion/Plan: She admitted to 2 glasses of wine every night and thinks maybe she has had shaky withdrawal symptoms sometimes. This may be the cause of increased LFTs Alternatively, the increased LFTs could be from right heart overload related to her MVP with probable significant longstanding MR. An Echo will be done today. (6) Alcohol use Conclusion/Plan: She admits to 2 glasses of wine every night and thinks maybe she has had shaky withdrawal symptoms sometimes. Her LFTs and MCV are levetaed. Will order CIWA protocol and as needed Ativan IV. Will also give a scheduled dose of Librium while she is here, to prevent withdrawl and will help her sleep. Will follow LFTs intermittently. Her twin sister, Juana, and Juana's Emigdio Alcaraz told me more information about the pt: They feel that the patient is an alcoholic. She probably drinks more than 4 glasses of wine a day. They "know not to call her after 2 PM because she is incoherent when speaking on the phone". Both the patient and the patient's drink heavily. (7) MVP (mitral valve prolapse) Conclusion/Plan: She has a loud systolic murmur. Significant mitral regurgitation due to mitral valve prolapse was seen on her last Echo which was done here over 5 years ago. She has no peripheral edema but does have increased LFTs which could be from right heart overload. An Echo needs to be done, which I will do myself today. This needs Cardiology management after discharge, to determine timing of mitral valve repair. This was discussed with the pt. (8) Poor memory Conclusion/Plan: This developed after she had a craniotomy and needed cerebral aneurysms clipped (or coils placed). She relies on her and other family members for details and keeps a lot of things written down she said. She then gave me permission to call her twin sister and this sister's (Juana and Emigdio Alcaraz) to get more information about her and the family because she cannot remember details. - Current Meds Current Meds: Current Medications Generic Name Dose Route Start Last Admin Trade Name Freq PRN Reason Stop Dose Admin Acetaminophen 650 mg 01/23/22 16:41 01/24/22 03:23 Acetaminophen 325 Mg Tablet PO 650 mg Q4HR PRN Administration Pain 1 to 4, or Fever Albuterol/Ipratropium 3 ml 01/23/22 17:31 01/24/22 11:15 Ipratropium/Albuterol 3 Ml Neb INH 3 ml RTQID PENG Administration Azithromycin 250 mg 01/24/22 09:00 01/24/22 09:14 Azithromycin 250 Mg Tablet PO 01/25/22 00:01 250 mg DAILY PENG Administration Budesonide 0.5 mg 01/23/22 19:00 01/24/22 07:36 Budesonide 0.5 Mg/2 Ml Neb INH 0.5 mg RTBID PENG Administration Chlordiazepoxide HCl 10 mg 01/23/22 21:00 01/24/22 09:08 Chlordiazepoxide 5 Mg Capsule PO 10 mg BID PENG Administration Enoxaparin Sodium 40 mg 01/24/22 09:00 01/24/22 09:09 Enoxaparin 40 Mg/0.4 Ml Syringe SUBQ 40 mg DAILY PENG Administration Guaifenesin 600 mg 01/23/22 21:00 01/24/22 09:09 Guaifenesin 600 Mg Tablet PO 600 mg BID PENG Administration Guaifenesin/Codeine Phosphate 5 ml 01/23/22 19:30 01/24/22 09:08 Guaifenesin/Codeine 5 Ml Udc PO 5 ml Q6HR PRN Administration Cough Ceftriaxone Sodium 2 gm/ 100 mls @ 200 mls/hr 01/23/22 16:47 01/24/22 09:40 Sodium Chloride IV Infused DAILY PENG Infusion Methylprednisolone 80 mg 01/23/22 22:00 01/24/22 05:02 Methylprednisolone Succinate 40 Mg/Ml Vial IVP 80 mg TID PENG Administration Montelukast Sodium 10 mg 01/23/22 21:00 01/23/22 21:06 Montelukast 10 Mg Tablet PO 10 mg QPM PENG Administration Nicotine 1 patch 01/24/22 09:00 01/24/22 09:24 Nicotine 14 Mg Patch TOP 1 patch DAILY PENG Administration Sodium Chloride 10 ml 01/23/22 17:00 01/24/22 09:09 Sodium Chloride Flush 0.9% 10 Ml Syringe IVP Not Given 0100,0900,[facility] Thiamine HCl 100 mg 01/24/22 10:00 01/24/22 09:22 Thiamine 100 Mg Tablet PO 100 mg DAILY PENG Administration - Lab Result Fish Bone Diagrams: 01/24/22 05:00 01/24/22 05:00 - Additional Planning My Orders: My Active Orders 01/23/22 Dinner Regular Diet [DIET] 01/23/22 16:41 Activity Orders [RC] Q2HR IO [RC] IOSHIFT Incentive Spirometry - RT [RC] TID Initiate Bowel Care Protocol [RC] .protocol Initiate Bronchodialator Miesha [RC] .PROTOCOL Initiate Line Care Protocol [RC] QSHIFT Initiate Personal Care Protoco [RC] .protocol Initiate Secretion Clearance P [RC] .PROTOCOL Oxygen Therapy [RC] .PRN Telemetry- [RC] Q4HR Vital Signs [RC] Q4HR Acetaminophen [Tylenol] 650 mg PO Q4HR PRN Ondansetron Inj [Zofran Inj] 4 mg IVP Q6HR PRN Sodium Chloride Flush 0.9% [Normal Saline Flush 0.9%] 10 ml IVP PRN PRN Code Status [OTHERS] Routine Condition of Patient [OTHERS] Routine DVT Prophylaxis [OTHERS] Routine 01/23/22 16:43 Daily Weight [RC] 0600 IV Insert [RC] .ONCE 01/23/22 16:45 Initiate Line Care Protocol [RC] QSHIFT 01/23/22 16:47 cefTRIAXone [Rocephin] 2 gm Sodium Chloride 0.9% Minibag [Normal Saline 0.9% Minibag] 100 ml IV DAILY 01/23/22 17:00 Sodium Chloride Flush 0.9% [Normal Saline Flush 0.9%] 10 ml IVP 0100,0900,1700 01/23/22 17:31 Resp Teach Nebulizer/MDI [RC] .ONCE Ipratropium/Albuterol [Duoneb] 3 ml INH Q4HR PRN Ipratropium/Albuterol [Duoneb] 3 ml INH RTQID 01/23/22 17:32 Nebulizer/MDI Tx. [RC] QID Resp Teach Nebulizer/MDI [RC] .ONCE 01/23/22 17:56 CIWA - AR Score Card [RC] Q4HR LORazepam INJ [Ativan Inj (Vial)] 1 mg IVP Q30M PRN 01/23/22 19:00 Budesonide [Pulmicort] 0.5 mg INH RTBID 01/23/22 19:30 guaiFENesin/CODEINE [Robitussin AC] 5 ml PO Q6HR PRN 01/23/22 21:00 Montelukast [Singulair] 10 mg PO QPM chlordiazePOXIDE [Librium] 10 mg PO BID guaiFENesin [Mucinex] 600 mg PO BID 01/23/22 22:00 methylPREDNISolone SUCCINATE [SOLU-Medrol (40MG VIAL)] 80 mg IVP TID 01/24/22 09:00 Azithromycin [Zithromax] 250 mg PO DAILY Enoxaparin [Lovenox] 40 mg SUBQ DAILY Nicotine 14 mg Patch [Nicoderm] 1 patch TOP DAILY 01/24/22 09:05 Sodium Chloride 0.9% [Normal Saline 0.9%] 1,000 ml IV 60 mls/hr 01/24/22 10:00 Thiamine [Vitamin B-1] 100 mg PO DAILY 01/25/22 05:00 LIVER PANEL [CHEM] DAILYLAB 01/26/22 05:00 LIVER PANEL [CHEM] DAILYLAB 01/27/22 05:00 LIVER PANEL [CHEM] DAILYLAB Subjective - Subjective Patient Reports: Feeling Better, Cough, Shortness of Breath Objective Vital Signs: Vital Signs - 24 hr 01/23/22 01/23/22 01/23/22 13:47 14:28 14:50 Temperature 36.7 C Heart Rate 100 92 Heart Rate [ Brachial] Heart Rate [ Monitoring electrodes] Respiratory 20 22 Rate Blood Pressure 149/96 H Blood Pressure [Right Brachial artery] O2 Saturation 90 L 85 L If not protocol 2 : Oxygen Flow, liters/minute 01/23/22 01/23/22 01/23/22 16:01 17:06 17:36 Temperature 37.1 C 36.7 C Heart Rate 95 85 Heart Rate [ Brachial] Heart Rate [ 90 Monitoring electrodes] Respiratory 16 17 16 Rate Blood Pressure 140/72 H 145/74 H Blood Pressure 139/83 H [Right Brachial artery] O2 Saturation 93 93 91 L If not protocol 2 3 : Oxygen Flow, liters/minute 01/23/22 01/23/22 01/23/22 18:22 18:45 20:51 Temperature 37.0 C Heart Rate 81 Heart Rate [ Brachial] Heart Rate [ 79 Monitoring electrodes] Respiratory 16 18 Rate Blood Pressure Blood Pressure 111/51 L [Right Brachial artery] O2 Saturation 96 If not protocol 3 2 2 : Oxygen Flow, liters/minute 01/24/22 01/24/22 01/24/22 00:05 05:00 07:38 Temperature 36.6 C 36.4 C L Heart Rate 63 Heart Rate [ 65 58 L Brachial] Heart Rate [ Monitoring electrodes] Respiratory 18 16 19 Rate Blood Pressure Blood Pressure 129/66 129/49 L [Right Brachial artery] O2 Saturation 98 93 If not protocol 2 2 : Oxygen Flow, liters/minute 01/24/22 01/24/22 01/24/22 07:41 08:05 11:19 Temperature 36.3 C L Heart Rate 71 Heart Rate [ 71 Brachial] Heart Rate [ Monitoring electrodes] Respiratory 20 20 Rate Blood Pressure Blood Pressure 130/62 [Right Brachial artery] O2 Saturation 92 If not protocol 2 2 2 : Oxygen Flow, liters/minute Oxygen O2 Source Nasal cannula Oxygen Flow Rate 2 I&O (Last 24 Hrs): Intake and Output Totals x24h 01/22/22 01/23/22 01/24/22 23:59 23:59 23:59 Intake Total 400 1580 Balance 400 1580 General: Alert, Oriented x3 HEENT: Mucous membr. moist/pink, Other (Hoarseness of voice) Neck: Supple, No JVD Neuro: Alert, Non Focal, Other (Poor memory) Cardiovascular: Regular rate, Other (3-4/6 syst murmur) Respiratory: Wheezes, Other (Slt better airmvm in all lung traylor, but still "tight") Abdomen: Normal bowel sounds, Soft Extremities: No clubbing, No edema, No tenderness/swelling - Results Results: Laboratory Results WBC 6.6 x10^3/uL (4.8-10.8) 01/24/22 05:00 RBC 3.58 10^6/uL (4.20-5.40) L 01/24/22 05:00 Hgb 13.0 g/dL (12.0-16.0) 01/24/22 05:00 Hct 37.9 % (37.0-47.0) 01/24/22 05:00 MCV 105.9 fL (81.0-99.0) H 01/24/22 05:00 MCH 36.3 pg (27.0-31.0) H 01/24/22 05:00 MCHC 34.3 g/dL (32.0-36.0) 01/24/22 05:00 RDW 13.7 % (12.0-15.0) 01/24/22 05:00 Plt Count 174 10^3/uL (130-450) 01/24/22 05:00 MPV 11.2 fL (7.9-10.8) H 01/24/22 05:00 Neut # (Auto) 5.6 10^3/uL (1.5-6.6) 01/24/22 05:00 Lymph # (Auto) 0.8 10^3/uL (1.5-3.5) L 01/24/22 05:00 Runnels # (Auto) 0.1 10^3/uL (0.0-1.0) 01/24/22 05:00 Eos # (Auto) 0.0 10^3/uL (0.0-0.7) 01/24/22 05:00 Baso # (Auto) 0.0 10^3/uL (0.0-0.1) 01/24/22 05:00 Absolute Nucleated RBC 0.00 x10^3/uL 01/24/22 05:00 Nucleated RBC % 0.0 /100WBC 01/24/22 05:00 PT 10.3 secs (9.9-12.6) 01/23/22 17:11 INR 0.9 (0.8-1.2) 01/23/22 17:11 Sodium 135 mmol/L (135-145) 01/24/22 05:00 Potassium 3.9 mmol/L (3.5-5.0) 01/24/22 05:00 Chloride 100 mmol/L (101-111) L 01/24/22 05:00 Carbon Dioxide 26 mmol/L (21-32) 01/24/22 05:00 Anion Gap 9.0 (6-13) 01/24/22 05:00 BUN 14 mg/dL (6-20) 01/24/22 05:00 Creatinine 0.5 mg/dL (0.4-1.0) 01/24/22 05:00 Estimated GFR (MDRD) 121 (>89) 01/24/22 05:00 Glucose 183 mg/dL (70-100) H 01/24/22 05:00 Calcium 8.3 mg/dL (8.5-10.3) L 01/24/22 05:00 Phosphorus 4.0 mg/dL (2.5-4.6) 01/24/22 05:00 Magnesium 2.4 mg/dL (1.7-2.8) 01/24/22 05:00 Total Bilirubin 0.5 mg/dL (0.2-1.0) 01/24/22 05:00 Direct Bilirubin 0.1 mg/dL (0.1-0.5) 01/24/22 05:00 AST 57 IU/L (10-42) H 01/24/22 05:00 ALT 61 IU/L (10-60) H 01/24/22 05:00 Alkaline Phosphatase 159 IU/L (42-121) H 01/24/22 05:00 B-Natriuretic Peptide 226 pg/mL (5-100) H 01/23/22 14:10 Total Protein 7.0 g/dL (6.7-8.2) 01/24/22 05:00 Albumin 3.7 g/dL (3.2-5.5) 01/24/22 05:00 Globulin 3.3 g/dL (2.1-4.2) 01/24/22 05:00 Albumin/Globulin Ratio 1.2 (1.0-2.2) 01/23/22 14:10 Lipase 39 U/L (22-51) 01/23/22 14:10 Nasal Adenovirus (PCR) NOT DETECTED 01/23/22 16:32 Nasal B. parapertussis DNA (PCR) NOT DETECTED 01/23/22 16:32 Nasal Coronavir 229E PCR NOT DETECTED 01/23/22 16:32 Nasal Coronavir HKU1 PCR NOT DETECTED 01/23/22 16:32 Nasal Coronavir NL63 PCR NOT DETECTED 01/23/22 16:32 Nasal Coronavir OC43 PCR NOT DETECTED 01/23/22 16:32 Nasal Enterovir/Rhinovir PCR NOT DETECTED 01/23/22 16:32 Nasal Influenza B PCR NOT DETECTED 01/23/22 16:32 Nasal Influenza A PCR NOT DETECTED 01/23/22 16:32 Nasal Parainfluen 1 PCR NOT DETECTED 01/23/22 16:32 Nasal Parainfluen 2 PCR NOT DETECTED 01/23/22 16:32 Nasal Parainfluen 3 PCR NOT DETECTED 01/23/22 16:32 Nasal Parainfluen 4 PCR NOT DETECTED 01/23/22 16:32 Nasal RSV (PCR) NOT DETECTED 11 16:32 Nasal B.pertussis DNA PCR NOT DETECTED 01/23/22 16:32 Nasal C.pneumoniae (PCR) NOT DETECTED 01/23/22 16:32 Mheul Human Metapneumo PCR NOT DETECTED 01/23/22 16:32 Nasal M.pneumoniae (PCR) NOT DETECTED 01/23/22 16:32 Nasal SARS-CoV-2 (PCR) NOT DETECTED 01/23/22 16:32 - Procedures Procedures: Procedures INSPECTION OF LOWER INTESTINAL TRACT, ENDO (12/07/19)
[2022-01-24] MEDS: BENZOCAINE/MENTHOL LOZENGE MM PRN (20:29)
[2022-01-24] MEDS: MONTELUKAST 10 MG TABLET PO SCH (21:23)
[2022-01-25] MEDS: SODIUM CHLORIDE FLUSH 0.9% 10 ML SYRINGE IVP SCH ×4 (00:35→23:25)
[2022-01-25] MEDS: BENZOCAINE/MENTHOL LOZENGE MM PRN ×4 (01:09→15:58)
[2022-01-25] MEDS: methylPREDNISolone SUCCINATE 40 MG/ML VIAL IVP SCH ×3 (05:38→21:01)
[2022-01-25 06:22] LABS: BASOPHILS % (AUTO) 0.2 %; HCT - HEMATOCRIT 37.2 % (37.0-47.0); HGB - HEMOGLOBIN 12.5 g/dL (12.0-16.0); LYMPHOCYTES # (AUTO) 1.1 10^3/uL (1.5-3.5); LYMPHOCYTES % (AUTO) 8.7 %; MEAN CORPUSCULAR HEMOGLOBIN 35.2 pg (27.0-31.0); MEAN CORPUSCULAR HGB CONC 33.6 g/dL (32.0-36.0); MEAN CORPUSCULAR VOLUME 104.8 fL (81.0-99.0); MEAN PLATELET VOLUME 10.8 fL (7.9-10.8); MONOCYTES # (AUTO) 0.8 10^3/uL (0.0-1.0); MONOCYTES % (AUTO) 6.2 %; NEUTROPHILS % (AUTO) 84.1 %; PLT - PLATELET COUNT 185 10^3/uL (130-450); RED BLOOD COUNT 3.55 10^6/uL (4.20-5.40); RED CELL DISTRIBUTION WIDTH 13.8 % (12.0-15.0); WHITE BLOOD COUNT 13.1 x10^3/uL (4.8-10.8)
[2022-01-25 06:35] LABS: ALBUMIN 3.6 g/dL (3.2-5.5); BILIRUBIN,DIRECT 0.1 mg/dL (0.1-0.5); BILIRUBIN,TOTAL 0.5 mg/dL (0.2-1.0); CALCIUM 8.7 mg/dL (8.5-10.3); CREATININE 0.5 mg/dL (0.4-1.0); POTASSIUM 3.5 mmol/L (3.5-5.0)
[2022-01-25] MEDS: BUDESONIDE 0.5 MG/2 ML NEB INH SCH ×2 (06:57→20:31)
[2022-01-25] MEDS: IPRATROPIUM/ALBUTEROL 3 ML NEB INH SCH ×4 (06:58→20:30)
[2022-01-25] MEDS: ENOXAPARIN 40 MG/0.4 ML SYRINGE SUBQ SCH (09:10)
[2022-01-25] MEDS: cefTRIAXone 2 GM in SODIUM CHLORIDE 0.9% MINIBAG 100 ML IV SCH (09:10)
[2022-01-25] MEDS: chlordiazePOXIDE 5 MG CAPSULE PO SCH ×2 (09:10→21:00)
[2022-01-25] MEDS: THIAMINE 100 MG TABLET PO SCH (09:10)
[2022-01-25] MEDS: guaiFENesin 600 MG TABLET PO SCH ×2 (09:10→21:00)
[2022-01-25] MEDS: NICOTINE 14 MG PATCH TOP SCH (09:17)
[2022-01-25] MEDS: SODIUM CHLORIDE 0.9% 1,000 ML IV SCH (10:18)
--- NOTE | 2022-01-25 11:12 | PROVIDER PROGRESS NOTE ---
Assessment/Plan - Problem List (1) Acute respiratory failure with hypoxia Assessment/Plan: The impression is that her hypoxia is caused by her COPD exacerbation. Will continue with supplemental O2 and treat the underlying COPD, keeping sats >88%. Tried to decrease to 2L today but needed to go up to 3L n.c. to reach a saturation of 90% Continue treatment of her COPD exacerbation She may be a future candidate for home O2 which was discussed with her at admission to consider. (2) COPD exacerbation Conclusion/Plan: Patient had severe wheezing and very poor air movement at admission, which has improved slightly to minimal wheezing and slightly improved air mvm yesterday and today. There were no infiltrates on chest x-ray but she has bronchitis by clinical picture. Will continue with nebulized bronchodilators every 4 hours as needed and 4 times daily scheduled. Also giving Pulmicort via nebulizer twice daily. She is on new Motelukast. She is on IV Solumedrol 80 mg 3 times daily and will start a taper to 40 mg tid. The steroids are making her emotional (tearful to me about her bad lifestyle today). We are giving empiric antibiotics; she got 4 days of Zithromax before admission so 1 more dose of Zithromax, that she was due for, plus we ordered IV cef triaxone empirically. Mucinex and Robitussin are helping the cough somewhat, but she has been coughing for 2 weeks and is hoarse Continue supplemental oxygen, weaning down as tolerated. Importance of smoking cessation was discussed with the patient. She reported today that the Nicotine patch is helping. I told her I suspect she needs 2-3 more days of hospital treatment at least, since COPD is slow to improve. This is her first ever hospitalization for COPD exacerbation. (3) Dizziness Conclusion/Plan: This is a new complaint today. During one of her episodes orthostatic vital signs were done and were completely WNL. I suspect it is the new high steroid along with codeine in her cough suppressants, that is making her "woozy", since it is not lightheadedness or near syncope. (4) VTach Conclusion/Plan: On 01/24, she had a 25-beat run of monomorphic VT at a rate of 115. She did not feel it; she was walking to the bathroom at the time, with the aide of her RN. She then disclosed to me that she gets palpitations that occur at any time, they do not cause dizziness and she has never had syncope. She has never had them worked up. She also reminded me that heart disease runs in the family (father had multiple heart attacks, 2 sisters have heart disease). Yesterday, she gave me permission to call her twin sister and this sister's (Juana and Emigdio Alcaraz) to get more information about her and the family, because she cannot remember details. I called them at home ([phone]). I spoke to them both. This sister has cardiomyopathy with normal coronary arteries and has a BiV ICD and another sister has a "stiff heart" and several uncles plus their dad had heart attacks. We did an Echo stat which showed normal LVEF but moderate MVP and severe MR We checked troponins and these were OK, also checked that her potassium and magnesium are within normal range. Continue to monitor on telemetry. (5) Elevated LFTs Conclusion/Plan: She admitted to 2 glasses of wine every night and thinks maybe she has had shaky withdrawal symptoms sometimes. This may be the cause of increased LFTs Alternatively, the increased LFTs could be from right heart overload related to her MVP with probable significant longstanding MR. The Echo was done 01/24 and did not show RV failure. (6) Alcohol use Conclusion/Plan: She admitted to 2 glasses of wine every night and thinks maybe she has had shaky withdrawal symptoms sometimes. Her LFTs and MCV are elevated. Will started a scheduled dose of Librium bid, to prevent alcohol withdrawal and to help her sleep. She is on a CIWA protocol and as needed Ativan IV. Her CIWA score is running 3. Will follow LFTs intermittently. Her twin sister, Juana, and Juana's Emigdio Alcaraz told me more information about the pt: They feel that the patient is an alcoholic. She probably drinks more than 4 glasses of wine a day. They "know not to call her after 2 PM because she is incoherent when speaking on the phone". Both the patient and the patient's drink heavily, they said. (7) MVP (mitral valve prolapse) Conclusion/Plan: She has a loud systolic murmur. Significant mitral regurgitation due to mitral valve prolapse was seen on her last Echo which was done here over 5 years ago. She has no peripheral edema but does have increased LFTs which could be from right heart overload. An Echo was done, which showed moderate MVP with severe MR. This needs Cardiology management after discharge, to determine timing of mitral valve repair. Needing Cardiology going forward was discussed with the pt and with sister and brother in law yesterday. (8) Poor memory Conclusion/Plan: This developed after she had a craniotomy and needed cerebral aneurysms clipped (or coils placed). She relies on her and other family members for details and keeps a lot of things written down she said. Yesterday she gave me permission to call her twin sister and sister's (Juana and Emigdio Alcaraz) to get more information about her and the family because she cannot remember details. (9) Tobacco use Conclusion/Plan: She is a heavy smoker of 2PPD. Importance of smoking cessation was discussed with the patient at admission She is getting a nicotine patch while she is here. She reported today that the Nicotine patch is helping. - Current Meds Current Meds: Current Medications Generic Name Dose Route Start Last Admin Trade Name Freq PRN Reason Stop Dose Admin Acetaminophen 650 mg 01/23/22 16:41 01/24/22 03:23 Acetaminophen 325 Mg Tablet PO 650 mg Q4HR PRN Administration Pain 1 to 4, or Fever Albuterol/Ipratropium 3 ml 01/23/22 17:31 01/25/22 06:58 Ipratropium/Albuterol 3 Ml Neb INH 3 ml RTQID PENG Administration Budesonide 0.5 mg 01/23/22 19:00 01/25/22 06:57 Budesonide 0.5 Mg/2 Ml Neb INH 0.5 mg RTBID PENG Administration Chlordiazepoxide HCl 10 mg 01/23/22 21:00 01/25/22 09:10 Chlordiazepoxide 5 Mg Capsule PO 10 mg BID PENG Administration Enoxaparin Sodium 40 mg 01/24/22 09:00 01/25/22 09:10 Enoxaparin 40 Mg/0.4 Ml Syringe SUBQ 40 mg DAILY PENG Administration Guaifenesin 600 mg 01/23/22 21:00 01/25/22 09:10 Guaifenesin 600 Mg Tablet PO 600 mg BID PENG Administration Guaifenesin/Codeine Phosphate 5 ml 01/23/22 19:30 01/24/22 21:23 Guaifenesin/Codeine 5 Ml Udc PO 5 ml Q6HR PRN Administration Cough Ceftriaxone Sodium 2 gm/ 100 mls @ 200 mls/hr 01/23/22 16:47 01/25/22 09:45 Sodium Chloride IV Infused DAILY PENG Infusion Montelukast Sodium 10 mg 01/23/22 21:00 01/24/22 21:23 Montelukast 10 Mg Tablet PO 10 mg QPM PENG Administration Nicotine 1 patch 01/24/22 09:00 01/25/22 09:17 Nicotine 14 Mg Patch TOP 1 patch DAILY PENG Administration Sodium Chloride 10 ml 01/23/22 17:00 01/25/22 09:20 Sodium Chloride Flush 0.9% 10 Ml Syringe IVP Not Given 0100,0900,1700 PENG Thiamine HCl 100 mg 01/24/22 10:00 01/25/22 09:10 Thiamine 100 Mg Tablet PO 100 mg DAILY PENG Administration Throat Lozenges 1 lozenge 01/24/22 19:37 01/25/22 03:20 Benzocaine/Menthol Lozenge MM 1 lozenge Q2HR PRN Administration Throat pain - Lab Result Fish Bone Diagrams: 01/25/22 05:56 01/25/22 05:56 - Additional Planning My Orders: My Active Orders 01/24/22 19:37 Benzocaine/Menthol [Cepacol] 1 lozenge MM Q2HR PRN 01/25/22 14:00 methylPREDNISolone SUCCINATE [SOLU-Medrol (40MG VIAL)] 40 mg IVP TID 01/26/22 05:00 LIVER PANEL [CHEM] DAILYLAB 01/27/22 05:00 LIVER PANEL [CHEM] DAILYLAB Subjective - Subjective Patient Reports: Cough (No better), Dizzines (Feels a new problem: "wooziness" today), Shortness of Breath (Improved) Objective Vital Signs: Vital Signs - 24 hr 01/24/22 01/24/22 01/24/22 13:14 14:39 15:59 Temperature 36.5 C 36.5 C Heart Rate 79 Heart Rate [ 87 79 Brachial] Respiratory 20 23 17 Rate Blood Pressure 117/53 L [Left Brachial artery] Blood Pressure 111/63 [Right Brachial artery] O2 Saturation 93 91 L If not protocol 2 2 2 : Oxygen Flow, liters/minute 01/24/22 01/24/22 01/24/22 19:00 20:58 23:40 Temperature 36.5 C 36.4 C L Heart Rate 73 Heart Rate [ 75 73 Brachial] Respiratory 18 18 20 Rate Blood Pressure [Left Brachial artery] Blood Pressure 135/59 H 126/72 [Right Brachial artery] O2 Saturation 94 91 L If not protocol 2 2 2 : Oxygen Flow, liters/minute 01/25/22 01/25/22 01/25/22 02:33 07:00 08:51 Temperature 36.4 C L 36.5 C Heart Rate 64 Heart Rate [ 61 88 Brachial] Respiratory 18 19 16 Rate Blood Pressure [Left Brachial artery] Blood Pressure 132/64 H 128/6 L [Right Brachial artery] O2 Saturation 94 92 If not protocol 2 2 2 : Oxygen Flow, liters/minute Oxygen O2 Source Nasal cannula Oxygen Flow Rate 2 I&O (Last 24 Hrs): Intake and Output Totals x24h 01/23/22 01/24/22 01/25/22 23:59 23:59 22:59 Intake Total 400 3380 1460 Balance 400 3380 1460 General: Alert, Oriented x3 HEENT: Mucous membr. moist/pink, Other (Hoarseness of voice, coughing frequently) Neck: Supple, No JVD Neuro: Alert, Non Focal, Other (Hand tremor. Tearful. Poor memory.) Cardiovascular: Regular rate, Other (loud 3/6 syst murmur) Respiratory: Wheezes, Other (Poor airmvm especially at apeces) Abdomen: Normal bowel sounds, Soft Extremities: No edema, No tenderness/swelling - Results Results: Laboratory Results WBC 13.1 x10^3/uL (4.8-10.8) H 01/25/22 05:56 RBC 3.55 10^6/uL (4.20-5.40) L 01/25/22 05:56 Hgb 12.5 g/dL (12.0-16.0) 01/25/22 05:56 Hct 37.2 % (37.0-47.0) 01/25/22 05:56 MCV 104.8 fL (81.0-99.0) H 01/25/22 05:56 MCH 35.2 pg (27.0-31.0) H 01/25/22 05:56 MCHC 33.6 g/dL (32.0-36.0) 01/25/22 05:56 RDW 13.8 % (12.0-15.0) 01/25/22 05:56 Plt Count 185 10^3/uL (130-450) 01/25/22 05:56 MPV 10.8 fL (7.9-10.8) 01/25/22 05:56 Neut # (Auto) 11.0 10^3/uL (1.5-6.6) H 01/25/22 05:56 Lymph # (Auto) 1.1 10^3/uL (1.5-3.5) L 01/25/22 05:56 [place] # (Auto) 0.8 10^3/uL (0.0-1.0) 01/25/22 05:56 Eos # (Auto) 0.0 10^3/uL (0.0-0.7) 01/25/22 05:56 Baso # (Auto) 0.0 10^3/uL (0.0-0.1) 01/25/22 05:56 Absolute Nucleated RBC 0.00 x10^3/uL 01/25/22 05:56 Nucleated RBC % 0.0 /100WBC 01/25/22 05:56 PT 10.3 secs (9.9-12.6) 01/23/22 17:11 INR 0.9 (0.8-1.2) 01/23/22 17:11 Sodium 137 mmol/L (135-145) 01/25/22 05:56 Potassium 3.5 mmol/L (3.5-5.0) 01/25/22 05:56 Chloride 103 mmol/L (101-111) 01/25/22 05:56 Carbon Dioxide 25 mmol/L (21-32) 01/25/22 05:56 Anion Gap 9.0 (6-13) 01/25/22 05:56 BUN 13 mg/dL (6-20) 01/25/22 05:56 Creatinine 0.5 mg/dL (0.4-1.0) 01/25/22 05:56 Estimated GFR (MDRD) 121 (>89) 01/25/22 05:56 Glucose 134 mg/dL (70-100) H 01/25/22 05:56 Calcium 8.7 mg/dL (8.5-10.3) 01/25/22 05:56 Phosphorus 4.0 mg/dL (2.5-4.6) 01/24/22 05:00 Magnesium 2.4 mg/dL (1.7-2.8) 01/24/22 05:00 Total Bilirubin 0.5 mg/dL (0.2-1.0) 01/25/22 05:56 Direct Bilirubin 0.1 mg/dL (0.1-0.5) 01/25/22 05:56 AST 67 IU/L (10-42) H 01/25/22 05:56 ALT 66 IU/L (10-60) H 01/25/22 05:56 Alkaline Phosphatase 142 IU/L (42-121) H 01/25/22 05:56 Troponin I High Sens 6.0 ng/L (2.3-14.8) 01/24/22 15:39 B-Natriuretic Peptide 506 pg/mL (5-100) H 01/25/22 05:56 Total Protein 7.0 g/dL (6.7-8.2) 01/25/22 05:56 Albumin 3.6 g/dL (3.2-5.5) 01/25/22 05:56 Globulin 3.4 g/dL (2.1-4.2) 01/25/22 05:56 Albumin/Globulin Ratio 1.2 (1.0-2.2) 01/23/22 14:10 Lipase 39 U/L (22-51) 01/23/22 14:10 Nasal Adenovirus (PCR) NOT DETECTED 01/23/22 16:32 Nasal B. parapertussis DNA (PCR) NOT DETECTED 01/23/22 16:32 Nasal Coronavir 229E PCR NOT DETECTED 01/23/22 16:32 Nasal Coronavir HKU1 PCR NOT DETECTED 01/23/22 16:32 Nasal Coronavir NL63 PCR NOT DETECTED 01/23/22 16:32 Nasal Coronavir OC43 PCR NOT DETECTED 01/23/22 16:32 Nasal Enterovir/Rhinovir PCR NOT DETECTED 01/23/22 16:32 Nasal Influenza B PCR NOT DETECTED 01/23/22 16:32 Nasal Influenza A PCR NOT DETECTED 01/23/22 16:32 Nasal Parainfluen 1 PCR NOT DETECTED 01/23/22 16:32 Nasal Parainfluen 2 PCR NOT DETECTED 01/23/22 16:32 Nasal Parainfluen 3 PCR NOT DETECTED 01/23/22 16:32 Nasal Parainfluen 4 PCR NOT DETECTED 01/23/22 16:32 Nasal RSV (PCR) NOT DETECTED 01/23/22 16:32 Nasal B.pertussis DNA PCR NOT DETECTED 01/23/22 16:32 Nasal C.pneumoniae (PCR) NOT DETECTED 01/23/22 16:32 Mehul Human Metapneumo PCR NOT DETECTED 01/23/22 16:32 Nasal M.pneumoniae (PCR) NOT DETECTED 01/23/22 16:32 Nasal SARS-CoV-2 (PCR) NOT DETECTED 01/23/22 16:32 - Procedures Procedures: Procedures INSPECTION OF LOWER INTESTINAL TRACT, ENDO (12/07/19) ABX Reporting Has patient been on IV antibiotics over the past 48 hours?: Yes
[2022-01-25] MEDS: SODIUM CHLORIDE FLUSH 0.9% 10 ML SYRINGE IVP PRN (14:04)
[2022-01-25] MEDS: guaiFENesin/CODEINE 5 ML UDC PO PRN ×2 (15:58→23:25)
[2022-01-25] MEDS: MONTELUKAST 10 MG TABLET PO SCH (21:00)
[2022-01-26] MEDS: BENZOCAINE/MENTHOL LOZENGE MM PRN ×3 (01:33→21:19)
[2022-01-26] MEDS: methylPREDNISolone SUCCINATE 40 MG/ML VIAL IVP SCH ×3 (05:06→21:19)
[2022-01-26 06:47] LABS: ALBUMIN 3.7 g/dL (3.2-5.5); BILIRUBIN,DIRECT 0.1 mg/dL (0.1-0.5); BILIRUBIN,TOTAL 0.6 mg/dL (0.2-1.0); TOTAL PROTEIN 7.2 g/dL (6.7-8.2)
[2022-01-26] MEDS: BUDESONIDE 0.5 MG/2 ML NEB INH SCH ×2 (07:14→18:58)
[2022-01-26] MEDS: IPRATROPIUM/ALBUTEROL 3 ML NEB INH SCH ×4 (07:15→18:58)
[2022-01-26] MEDS: NICOTINE 14 MG PATCH TOP SCH (09:15)
[2022-01-26] MEDS: chlordiazePOXIDE 5 MG CAPSULE PO SCH ×2 (09:15→21:19)
[2022-01-26] MEDS: THIAMINE 100 MG TABLET PO SCH (09:15)
[2022-01-26] MEDS: guaiFENesin 600 MG TABLET PO SCH ×2 (09:15→21:19)
[2022-01-26] MEDS: ENOXAPARIN 40 MG/0.4 ML SYRINGE SUBQ SCH (09:15)
[2022-01-26] MEDS: cefTRIAXone 2 GM in SODIUM CHLORIDE 0.9% MINIBAG 100 ML IV SCH (09:16)
[2022-01-26] MEDS: SODIUM CHLORIDE FLUSH 0.9% 10 ML SYRINGE IVP SCH ×2 (09:16→15:39)
[2022-01-26] MEDS: SODIUM CHLORIDE FLUSH 0.9% 10 ML SYRINGE IVP PRN (14:30)
--- NOTE | 2022-01-26 19:19 | PROVIDER PROGRESS NOTE ---
Assessment/Plan - Problem List (1) Acute respiratory failure with hypoxia Assessment/Plan: The impression is that her hypoxia is caused by her COPD exacerbation. Will continue with supplemental O2 and treat the underlying COPD, keeping sats >88%. Tried to decrease to 2L today but needed to go up to 2.5L n.c. to reach a saturation of 90% Continue treatment of her COPD exacerbation She may be a future candidate for home O2 which was discussed with her at admission to consider. She will need an oximetry walk test on the day of discharge (2) COPD exacerbation Conclusion/Plan: Patient had severe wheezing and very poor air movement at admission, which has improved slightly to minimal wheezing and slightly improved air mvm yesterday and today. There were no infiltrates on chest x-ray but she has bronchitis by clinical picture. Will continue with nebulized bronchodilators every 4 hours as needed and 4 times daily scheduled. Also giving Pulmicort via nebulizer twice daily. She is on new Montelukast. She was on IV Solumedrol 80 mg 3 times daily and we started a taper to 40 mg tid. The steroids were making her emotional (tearful to me about her bad lifest yle). We gave empiric antibiotics; she got 4 days of Zithromax before admission so 1 more dose of Zithromax, that she was due for, plus we ordered IV ceftriaxone empirically, and she will finish 5 days on 01/27. Mucinex and Robitussin are helping the cough somewhat, but she has been coughing for 2 weeks and is hoarse Continue supplemental oxygen, weaning down as tolerated. Importance of smoking cessation was discussed with the patient. She reported that the Nicotine patch is helping. Today I told her, and at bedside, I suspect she needs 1-2 more days of hospital treatment at least, since COPD is slow to improve. This is her first ever hospitalization for COPD exacerbation. (3) Dizziness Conclusion/Plan: Wooziness was a new complaint on 01/25. During one of her episodes orthostatic vital signs were done and were completely WNL. I suspect it is the new high dose steroids along with codeine in her cough suppressants, that are making her "woozy", since it is not lightheadedness or near syncope. (4) VTach Conclusion/Plan: On 01/24, she had a 25-beat run of monomorphic VT at a rate of 115. She did not feel it; she was walking to the bathroom at the time, with the aide of her RN. She then disclosed to me that she gets palpitations that occur at any time, they do not cause dizziness and she has never had syncope. She has never had them worked up. She also reminded me that heart disease runs in the family (father had multiple heart attacks, 2 sisters have heart disease). She gave me permission to call her twin sister and this sister's (Juana and Emigdio Alcaraz) to get more i nformation about her and the family, because she cannot remember details. I called them at home ([phone]). I spoke to them both. This sister has cardiomyopathy with normal coronary arteries and has a BiV ICD and another sister has a "stiff heart" and several uncles plus their dad had heart attacks. We did an Echo because of the VTach which showed normal LVEF but moderate MVP and severe MR We checked troponins and these were OK, also checked that her potassium and magnesium are within normal range. Continue to monitor on telemetry. Watch Mg and K. (5) Elevated LFTs Conclusion/Plan: She admitted to 2 glasses of wine every night and thinks maybe she has had shaky withdrawal symptoms sometimes. This is likely the cause of increased LFTs Alternatively, the increased LFTs could be from right heart overload related to her MVP with probable significant longstanding MR. The Echo was done 01/24 and did not show RV failure. (6) Alcohol use Conclusion/Plan: She admitted to 2 glasses of wine every night and thinks maybe she has had shaky withdrawal symptoms sometimes. Her LFTs and MCV are elevated. Will started a scheduled dose of Librium 10 mg bid, to prevent alcohol withdrawal and to help her sleep. She is on a CIWA protocol and as needed Ativan IV. Her CIWA score is running 3. Will follow LFTs intermittently. Her twin sister, Juana, and Juana's Emigdio Alcaraz told me more infor mation about the pt: They feel that the patient is an alcoholic. She probably drinks more than 4 glasses of wine a day. They "know not to call her after 2 PM because she is incoherent when speaking on the phone". Both the patient and the patient's drink heavily, they said. B12 and folate levels are ordered to check. (7) MVP (mitral valve prolapse) Conclusion/Plan: She has a loud systolic murmur. Significant mitral regurgitation due to mitral valve prolapse was seen on her last Echo which was done here over 5 years ago. She has no peripheral edema but does have increased LFTs which could be from right heart overload. An Echo was done, which showed moderate MVP with severe MR. This definitely needs Cardiology management after discharge, to determine timing of mitral valve repair. Needing Cardiology going forward was discussed with the pt and also with sister and brother in law. (8) Poor memory Conclusion/Plan: This developed after she had a craniotomy and needed cerebral aneurysms clipped (or coils placed). She relies on her and other family members for details and keeps a lot of things written down she said. She gave me permission to call her twin sister and sister's (Juana and Emigdio Alcaraz) to get more information about her and the family because she cannot remember details. (9) Tobacco use Conclusion/Plan: She is a heavy smoker of 2PPD. Importance of smoking cessation was discussed with the patient at admission She is getting a nicotine patch while she is here. She reported today that the Nicotine patch is helping. - Current Meds Current Meds: Current Medications Generic Name Dose Route Start Last Admin Trade Name Freq PRN Reason Stop Dose Admin Acetaminophen 650 mg 01/23/22 16:41 01/24/22 03:23 Acetaminophen 325 Mg Tablet PO 650 mg Q4HR PRN Administration Pain 1 to 4, or Fever Albuterol/Ipratropium 3 ml 01/23/22 17:31 01/26/22 18:58 Ipratropium/Albuterol 3 Ml Neb INH 3 ml RTQID PENG Administration Budesonide 0.5 mg 01/23/22 19:00 01/26/22 18:58 Budesonide 0.5 Mg/2 Ml Neb INH 0.5 mg RTBID PENG Administration Chlordiazepoxide HCl 10 mg 01/23/22 21:00 01/26/22 09:15 Chlordiazepoxide 5 Mg Capsule PO 10 mg BID PENG Administration Enoxaparin Sodium 40 mg 01/24/22 09:00 01/26/22 09:15 Enoxaparin 40 Mg/0.4 Ml Syringe SUBQ 40 mg DAILY PENG Administration Guaifenesin 600 mg 01/23/22 21:00 01/26/22 09:15 Guaifenesin 600 Mg Tablet PO 600 mg BID PENG Administration Guaifenesin/Codeine Phosphate 5 ml 01/23/22 19:30 01/25/22 23:25 Guaifenesin/Codeine 5 Ml Udc PO 5 ml Q6HR PRN Administration Cough Ceftriaxone Sodium 2 gm/ 100 mls @ 200 mls/hr 01/23/22 16:47 01/26/22 09:50 Sodium Chloride IV 01/27/22 16:46 Infused DAILY PENG Infusion Methylprednisolone 40 mg 01/25/22 14:00 01/26/22 14:30 Methylprednisolone Succinate 40 Mg/Ml Vial IVP 40 mg TID PENG Administration Montelukast Sodium 10 mg 01/23/22 21:00 01/25/22 21:00 Montelukast 10 Mg Tablet PO 10 mg QPM PENG Administration Nicotine 1 patch 01/24/22 09:00 01/26/22 09:15 Nicotine 14 Mg Patch TOP 1 patch DAILY PENG Administration Sodium Chloride 10 ml 01/23/22 16:41 01/26/22 14:30 Sodium Chloride Flush 0.9% 10 Ml Syringe IVP 10 ml PRN PRN Administration NEEDED PER PROVIDER ORDERS Sodium Chloride 10 ml 01/23/22 17:00 01/26/22 15:39 Sodium Chloride Flush 0.9% 10 Ml Syringe IVP 10 ml 0100,0900,1700 PENG Administration Thiamine HCl 100 mg 01/24/22 10:00 01/26/22 09:15 Thiamine 100 Mg Tablet PO 100 mg DAILY PENG Administration Throat Lozenges 1 lozenge 01/24/22 19:37 01/26/22 05:17 Benzocaine/Menthol Lozenge MM 1 lozenge Q2HR PRN Administration Throat pain - Lab Result Fish Bone Diagrams: 01/25/22 05:56 01/25/22 05:56 - Additional Planning My Orders: My Active Orders 01/27/22 05:00 BMP - BASIC METABOLIC PANEL [CHEM] DAILYLAB CBC - COMP BLD CT W/AUTO DIFF [HEME] DAILYLAB FOLATE [IAI] DAILYLAB LIVER PANEL [CHEM] DAILYLAB VITAMIN B12 [IAI] DAILYLAB 01/28/22 05:00 BMP - BASIC METABOLIC PANEL [CHEM] DAILYLAB CBC - COMP BLD CT W/AUTO DIFF [HEME] DAILYLAB Subjective - Subjective Patient Reports: Cough (The cough is now breaking up her secretions), Other (She is still hoarse.) Objective Vital Signs: Vital Signs - 24 hr 01/25/22 01/25/22 01/25/22 20:33 20:58 23:30 Temperature 36.3 C L 36.3 C L Heart Rate 72 Heart Rate [ 70 80 Brachial] Respiratory 16 18 18 Rate Blood Pressure [Left Brachial artery] Blood Pressure 141/70 H 151/73 H [Right Brachial artery] O2 Saturation 97 95 If not protocol 2 3 3 : Oxygen Flow, liters/minute 01/26/22 01/26/22 01/26/22 05:15 07:21 08:05 Temperature 36.3 C L Heart Rate 68 Heart Rate [ 63 Brachial] Respiratory 20 18 Rate Blood Pressure [Left Brachial artery] Blood Pressure 148/79 H [Right Brachial artery] O2 Saturation 94 If not protocol 3 2 2 : Oxygen Flow, liters/minute 01/26/22 01/26/22 01/26/22 09:21 10:57 14:40 Temperature 36.3 C L 36.5 C Heart Rate 66 Heart Rate [ 88 73 Brachial] Respiratory 18 18 18 Rate Blood Pressure 140/63 H [Left Brachial artery] Blood Pressure 131/67 H [Right Brachial artery] O2 Saturation 94 93 If not protocol 2 : Oxygen Flow, liters/minute 01/26/22 18:59 Temperature Heart Rate 65 Heart Rate [ Brachial] Respiratory 18 Rate Blood Pressure [Left Brachial artery] Blood Pressure [Right Brachial artery] O2 Saturation If not protocol 2 : Oxygen Flow, liters/minute Oxygen O2 Source Nasal cannula Oxygen Flow Rate 2 I&O (Last 24 Hrs): Intake and Output Totals x24h 01/25/22 01/25/22 01/26/22 00:59 23:59 23:59 Intake Total 1960 Balance 1960 General: Alert, Oriented x3 HEENT: Mucous membr. moist/pink, Other (Hoarse voice) Neck: Supple, No JVD Neuro: Alert, Non Focal, Other (Poor memory) Cardiovascular: Regular rate, Other (3-4/6 syst murmur) Respiratory: Wheezes (at apeces, better air mvm at both bases today, no rhonchi.) Abdomen: Normal bowel sounds, Soft, No tenderness Extremities: No clubbing, No edema, No tenderness/swelling - Results Results: Laboratory Results WBC 13.1 x10^3/uL (4.8-10.8) H 01/25/22 05:56 RBC 3.55 10^6/uL (4.20-5.40) L 01/25/22 05:56 Hgb 12.5 g/dL (12.0-16.0) 01/25/22 05:56 Hct 37.2 % (37.0-47.0) 01/25/22 05:56 MCV 104.8 fL (81.0-99.0) H 01/25/22 05:56 MCH 35.2 pg (27.0-31.0) H 01/25/22 05:56 MCHC 33.6 g/dL (32.0-36.0) 01/25/22 05:56 RDW 13.8 % (12.0-15.0) 01/25/22 05:56 Plt Count 185 10^3/uL (130-450) 01/25/22 05:56 MPV 10.8 fL (7.9-10.8) 01/25/22 05:56 Neut # (Auto) 11.0 10^3/uL (1.5-6.6) H 01/25/22 05:56 Lymph # (Auto) 1.1 10^3/uL (1.5-3.5) L 01/25/22 05:56 Clinch # (Auto) 0.8 10^3/uL (0.0-1.0) 01/25/22 05:56 Eos # (Auto) 0.0 10^3/uL (0.0-0.7) 01/25/22 05:56 Baso # (Auto) 0.0 10^3/uL (0.0-0.1) 01/25/22 05:56 Absolute Nucleated RBC 0.00 x10^3/uL 01/25/22 05:56 Nucleated RBC % 0.0 /100WBC 01/25/22 05:56 PT 10.3 secs (9.9-12.6) 01/23/22 17:11 INR 0.9 (0.8-1.2) 01/23/22 17:11 Sodium 137 mmol/L (135-145) 01/25/22 05:56 Potassium 3.5 mmol/L (3.5-5.0) 01/25/22 05:56 Chloride 103 mmol/L (101-111) 01/25/22 05:56 Carbon Dioxide 25 mmol/L (21-32) 01/25/22 05:56 Anion Gap 9.0 (6-13) 01/25/22 05:56 BUN 13 mg/dL (6-20) 01/25/22 05:56 Creatinine 0.5 mg/dL (0.4-1.0) 01/25/22 05:56 Estimated GFR (MDRD) 121 (>89) 01/25/22 05:56 Glucose 134 mg/dL (70-100) H 01/25/22 05:56 Calcium 8.7 mg/dL (8.5-10.3) 01/25/22 05:56 Phosphorus 4.0 mg/dL (2.5-4.6) 01/24/22 05:00 Magnesium 2.4 mg/dL (1.7-2.8) 01/24/22 05:00 Total Bilirubin 0.6 mg/dL (0.2-1.0) 01/26/22 06:09 Direct Bilirubin 0.1 mg/dL (0.1-0.5) 01/26/22 06:09 AST 79 IU/L (10-42) H 01/26/22 06:09 ALT 86 IU/L (10-60) H 01/26/22 06:09 Alkaline Phosphatase 141 IU/L (42-121) H 01/26/22 06:09 Troponin I High Sens 6.0 ng/L (2.3-14.8) 01/24/22 15:39 B-Natriuretic Peptide 506 pg/mL (5-100) H 01/25/22 05:56 Total Protein 7.2 g/dL (6.7-8.2) 01/26/22 06:09 Albumin 3.7 g/dL (3.2-5.5) 01/26/22 06:09 Globulin 3.5 g/dL (2.1-4.2) 01/26/22 06:09 Albumin/Globulin Ratio 1.2 (1.0-2.2) 01/23/22 14:10 Lipase 39 U/L (22-51) 01/23/22 14:10 Nasal Adenovirus (PCR) NOT DETECTED 01/23/22 16:32 Nasal B. parapertussis DNA (PCR) NOT DETECTED 01/23/22 16:32 Nasal Coronavir 229E PCR NOT DETECTED 01/23/22 16:32 Nasal Coronavir HKU1 PCR NOT DETECTED 01/23/22 16:32 Nasal Coronavir NL63 PCR NOT DETECTED 01/23/22 16:32 Nasal Coronavir OC43 PCR NOT DETECTED 01/23/22 16:32 Nasal Enterovir/Rhinovir PCR NOT DETECTED 01/23/22 16:32 Nasal Influenza B PCR NOT DETECTED 01/23/22 16:32 Nasal Influenza A PCR NOT DETECTED 01/23/22 16:32 Nasal Parainfluen 1 PCR NOT DETECTED 01/23/22 16:32 Nasal Parainfluen 2 PCR NOT DETECTED 01/23/22 16:32 Nasal Parainfluen 3 PCR NOT DETECTED 01/23/22 16:32 Nasal Parainfluen 4 PCR NOT DETECTED 01/23/22 16:32 Nasal RSV (PCR) NOT DETECTED 01/23/22 16:32 Nasal B.pertussis DNA PCR NOT DETECTED 01/23/22 16:32 Nasal C.pneumoniae (PCR) NOT DETECTED 01/23/22 16:32 Mehul Human Metapneumo PCR NOT DETECTED 01/23/22 16:32 Nasal M.pneumoniae (PCR) NOT DETECTED 01/23/22 16:32 Nasal SARS-CoV-2 (PCR) NOT DETECTED 01/23/22 16:32 - Procedures Procedures: Procedures INSPECTION OF LOWER INTESTINAL TRACT, ENDO (12/07/19)
[2022-01-26] MEDS: MONTELUKAST 10 MG TABLET PO SCH (21:19)
[2022-01-26] MEDS: guaiFENesin/CODEINE 5 ML UDC PO PRN (21:24)
[2022-01-27] MEDS: SODIUM CHLORIDE FLUSH 0.9% 10 ML SYRINGE IVP SCH ×4 (00:20→23:25)
[2022-01-27] MEDS: methylPREDNISolone SUCCINATE 40 MG/ML VIAL IVP SCH (05:16)
[2022-01-27 05:26] LABS: BASOPHILS % (AUTO) 0.1 %; HCT - HEMATOCRIT 38.7 % (37.0-47.0); HGB - HEMOGLOBIN 13.1 g/dL (12.0-16.0); LYMPHOCYTES % (AUTO) 10.8 %; MEAN CORPUSCULAR HEMOGLOBIN 35.8 pg (27.0-31.0); MEAN CORPUSCULAR HGB CONC 33.9 g/dL (32.0-36.0); MEAN CORPUSCULAR VOLUME 105.7 fL (81.0-99.0); MEAN PLATELET VOLUME 10.4 fL (7.9-10.8); MONOCYTES # (AUTO) 0.5 10^3/uL (0.0-1.0); MONOCYTES % (AUTO) 6.1 %; NEUTROPHILS # (AUTO) 7.3 10^3/uL (1.5-6.6); NEUTROPHILS % (AUTO) 82.1 %; PLT - PLATELET COUNT 217 10^3/uL (130-450); RED BLOOD COUNT 3.66 10^6/uL (4.20-5.40); RED CELL DISTRIBUTION WIDTH 13.7 % (12.0-15.0); WHITE BLOOD COUNT 8.9 x10^3/uL (4.8-10.8)
[2022-01-27 05:44] LABS: ALBUMIN 3.5 g/dL (3.2-5.5); BILIRUBIN,DIRECT 0.1 mg/dL (0.1-0.5); BILIRUBIN,TOTAL 0.7 mg/dL (0.2-1.0); CALCIUM 8.8 mg/dL (8.5-10.3); CREATININE 0.5 mg/dL (0.4-1.0); POTASSIUM 3.7 mmol/L (3.5-5.0); TOTAL PROTEIN 6.9 g/dL (6.7-8.2)
[2022-01-27 06:07] LABS: FOLATE 4.27 ng/mL (5.90 - >24.8)
[2022-01-27] MEDS: ENOXAPARIN 40 MG/0.4 ML SYRINGE SUBQ SCH (09:37)
[2022-01-27] MEDS: NICOTINE 14 MG PATCH TOP SCH (09:37)
[2022-01-27] MEDS: guaiFENesin 600 MG TABLET PO SCH ×2 (09:39→20:12)
[2022-01-27] MEDS: THIAMINE 100 MG TABLET PO SCH (09:39)
[2022-01-27] MEDS: chlordiazePOXIDE 5 MG CAPSULE PO SCH ×2 (09:39→20:12)
[2022-01-27] MEDS: PRENATAL VITAMIN TABLET PO SCH (09:47)
[2022-01-27] MEDS: cefTRIAXone 2 GM in SODIUM CHLORIDE 0.9% MINIBAG 100 ML IV SCH (10:59)
[2022-01-27] MEDS: IPRATROPIUM/ALBUTEROL 3 ML NEB INH SCH ×3 (11:04→15:30)
[2022-01-27] MEDS: BUDESONIDE 0.5 MG/2 ML NEB INH SCH (11:05)
--- NOTE | 2022-01-27 15:27 | PROVIDER PROGRESS NOTE ---
Subjective - Prog Note Date Prog Note Date: 01/27/22 Prog Note Time: 15:25 - Subjective Subjective: Today her main complaint was that of palpitations. She been having them for about 15 or 20 minutes. But on telemetry there is normal sinus rhythm. Not ev en tachycardia. Her shortness of breath and wheezing of slowly been improving. Current Medications - Current Medications Current Medications: Active Medications Acetaminophen (Acetaminophen 325 Mg Tablet) 650 mg PO Q4HR PRN PRN Reason: Pain 1 to 4, or Fever Last Admin: 01/24/22 03:23 Dose: 650 mg Albuterol/Ipratropium (Ipratropium/Albuterol 3 Ml Neb) 3 ml INH Q4HR PRN PRN Reason: Wheezing Albuterol/Ipratropium (Ipratropium/Albuterol 3 Ml Neb) 3 ml INH RTQID [facility] Last Admin: 01/27/22 11:42 Dose: 3 ml Budesonide (Budesonide 0.5 Mg/2 Ml Neb) 0.5 mg INH RTBID [facility] Last Admin: 01/27/22 11:05 Dose: 0.5 mg Chlordiazepoxide HCl (Chlordiazepoxide 5 Mg Capsule) 10 mg PO BID [facility] Last Admin: 01/27/22 09:39 Dose: 10 mg Enoxaparin Sodium (Enoxaparin 40 Mg/0.4 Ml Syringe) 40 mg SUBQ DAILY [facility] Last Admin: 01/27/22 09:37 Dose: 40 mg Guaifenesin (Guaifenesin 600 Mg Tablet) 600 mg PO BID [facility] Last Admin: 01/27/22 09:39 Dose: 600 mg Guaifenesin/Codeine Phosphate (Guaifenesin/Codeine 5 Ml Udc) 5 ml PO Q6HR PRN PRN Reason: Cough Last Admin: 01/26/22 21:24 Dose: 5 ml Ceftriaxone Sodium 2 gm/ (Sodium Chloride) 100 mls @ 200 mls/hr IV DAILY [facility] Stop: 01/27/22 16:46 Last Infusion: 01/27/22 11:35 Dose: Infused Lorazepam (Lorazepam 2 Mg/Ml Vial) 1 mg IVP Q30M PRN; Protocol PRN Reason: CIWA >8 Montelukast Sodium (Montelukast 10 Mg Tablet) 10 mg PO QPM [facility] Last Admin: 01/26/22 21:19 Dose: 10 mg Nicotine (Nicotine 14 Mg Patch) 1 patch TOP DAILY [facility] Last Admin: 01/27/22 09:37 Dose: 1 patch Ondansetron HCl (Ondansetron 4 Mg/2 Ml Vial) 4 mg IVP Q6HR PRN PRN Reason: Nausea / Vomiting Multivit/Folic Acid/Iron ( Vitamin Tablet) 1 tab PO DAILYWM [facility] Last Admin: 01/27/22 09:47 Dose: 1 tab Sodium Chloride (Sodium Chloride Flush 0.9% 10 Ml Syringe) 10 ml IVP PRN PRN PRN Reason: NEEDED PER PROVIDER ORDERS Last Admin: 01/26/22 14:30 Dose: 10 ml Sodium Chloride (Sodium Chloride Flush 0.9% 10 Ml Syringe) 10 ml IVP 0100,0900,1700 [facility] Last Admin: 01/27/22 09:44 Dose: 10 ml Thiamine HCl (Thiamine 100 Mg Tablet) 100 mg PO DAILY [facility] Last Admin: 01/27/22 09:39 Dose: 100 mg Throat Lozenges (Benzocaine/Menthol Lozenge) 1 lozenge MM Q2HR PRN PRN Reason: Throat pain Last Admin: 01/26/22 21:19 Dose: 1 lozenge Albuterol Sulf [Ventolin Hfa Inhaler] 2 puffs INH Q6H PRN 01/23/22 Benzonatate [Tessalon] 100 - 200 mg PO Q8H PRN 01/23/22 Melatonin 1 mg PO HS 01/23/22 Objective - Vital Signs/Intake & Output Reviewed Vital Signs: Yes Vital Signs: Vital Signs x48h Temp Pulse Pulse Resp BP Pulse Ox O2 Flow Rate 01/27/22 11:45 36.2 C L 69 20 138/72 H 93 2.5 01/27/22 11:42 68 18 2 01/27/22 10:40 91 L 2 01/27/22 10:35 85 L 01/27/22 08:27 36.5 C 82 20 148/74 H 91 L 2.5 01/27/22 08:25 2.5 01/27/22 07:40 78 18 2 Intake & Output: Intake & Output 01/25/22 01/25/22 01/26/22 01/27/22 00:59 23:59 23:59 23:59 Intake Total 1959 1099 Balance 1960 1100 - Objective General Appearance: positive: No acute distress, Alert, Other (She has a hoarse voice, nasal tone of voice, a dry cough that happened once during exam) Eyes Bilateral: positive: PERRL ENT: positive: No signs of dehydration Neck: positive: No JVD Respiratory: positive: No respiratory distress, Wheezes (Once during 1 breath. The rest of her exam was negative.), Other (No use of accessory muscles. No respiratory distress. Again, her main concern was her tachycardia or sense of palpitations). negative: Rales, Rhonchi Cardiovascular: positive: Regular rate & rhythm. negative: Tachycardia Abdomen: positive: Non-tender, No organomegaly, Nml bowel sounds, No distention Skin: positive: Warm, Dry Extremities: positive: Full ROM, No pedal edema Neurologic/Psychiatric: positive: Oriented x3, CN's nml (2-12), Motor nml - Lab Results Fish Bones: 01/27/22 05:17 01/27/22 05:17 Other Labs: Lab Results x24hrs 01/27/22 01/27/22 01/27/22 Range/Units 05:17 05:17 05:17 WBC 8.9 (4.8-10.8) x10^3/uL RBC 3.66 L (4.20-5.40) 10^6/uL Hgb 13.1 (12.0-16.0) g/dL Hct 38.7 (37.0-47.0) % MCV 105.7 H (81.0-99.0) fL MCH 35.8 H (27.0-31.0) pg MCHC 33.9 (32.0-36.0) g/dL RDW 13.7 (12.0-15.0) % Plt Count 217 (130-450) 10^3/uL MPV 10.4 (7.9-10.8) fL Neut # (Auto) 7.3 H (1.5-6.6) 10^3/uL Lymph # (Auto) 1.0 L (1.5-3.5) 10^3/uL Wells # (Auto) 0.5 (0.0-1.0) 10^3/uL Eos # (Auto) 0.0 (0.0-0.7) 10^3/uL Baso # (Auto) 0.0 (0.0-0.1) 10^3/uL Absolute Nucleated RBC 0.00 x10^3/uL Nucleated RBC % 0.0 /100WBC Sodium 137 (135-145) mmol/L Potassium 3.7 (3.5-5.0) mmol/L Chloride 102 (101-111) mmol/L Carbon Dioxide 25 (21-32) mmol/L Anion Gap 10.0 (6-13) BUN 15 (6-20) mg/dL Creatinine 0.5 (0.4-1.0) mg/dL Estimated GFR (MDRD) 121 (>89) Glucose 135 H (70-100) mg/dL Calcium 8.8 (8.5-10.3) mg/dL Total Bilirubin 0.7 (0.2-1.0) mg/dL Direct Bilirubin 0.1 (0.1-0.5) mg/dL AST 127 H (10-42) IU/L ALT 149 H (10-60) IU/L Alkaline Phosphatase 133 H (42-121) IU/L Total Protein 6.9 (6.7-8.2) g/dL Albumin 3.5 (3.2-5.5) g/dL Globulin 3.4 (2.1-4.2) g/dL Vitamin B12 297 (180-914) pg/mL Folate 4.27 L (5.90 - >24.8) ng/mL Assessment/Plan - Problem List (1) Acute respiratory failure with hypoxia Impression: The impression is that her hypoxia is caused by her COPD exacerbation. Will continue with supplemental O2 and treat the underlying COPD, keeping sats >88%. Currently requiring 2-1/2 L to maintain O2 sats at 91%. We checked her on room air this morning and she is 85% on room air. Continue treatment of her COPD exacerbation. She may be a future candidate for home O2 which was discussed with her at admission to consider. She will need an oximetry walk test on the day of discharge (2) COPD exacerbation Conclusion/Plan: Patient had severe wheezing and very poor air movement at admission, which has improved slightly to minimal wheezing and slightly improved air mvm 01/25 AND 01/26. There were no infiltrates on chest x-ray but she has bronchitis by clinical picture. She is on inhaled Pulmicort, ceftriaxone, Mucinex 600 twice daily, guaifenesin with codeine every 6 hours as needed, DuoNeb as needed, DuoNeb added 4 times daily dosing methylprednisolone 40 mg IV push 3 times daily, Singulair, nicotine patch. Steroids are making her emotional so they were tapered ON 01/26 from 80 mg 3 times daily to 40 mg 3 times daily. I will stop them today and watch her overnight to see if she does okay without any more tapering of steroids. If there is no rebound wheezing, I would think that she be ready for discharge tomorrow and will most likely need oxygen at home. The impression is that her hypoxia is caused by her COPD exacerbation. Will continue with supplemental O2 and treat the underlying COPD, keeping sats >88%. Continue treatment of her COPD exacerbation She may be a future candidate for home O2 which was discussed with her at [facility] to consider. She will need an oximetry walk test on the day of discharge (3) Dizziness Conclusion/Plan: Wooziness was a new complaint on 01/25. During one of her episodes orthostatic vital signs were done and were completely WNL. I suspect it is the new high dose steroids along with codeine in her cough suppressants, that are making her "woozy", since it is not lightheadedness or near syncope. (4) VTach Conclusion/Plan: On 01/24, she had a 25-beat run of monomorphic VT at a rate of 115. She did not feel it; she was walking to the bathroom at the time, with the aide of her RN. She then disclosed to me that she gets palpitations that occur at any time, they do not cause dizziness and she has never had syncope. She has never had them worked up. She also reminded me that heart disease runs in the family (father had multiple heart attacks, 2 sisters have heart disease). She gave me permission to call her twin sister and this sister's (Juana and Emigdio Alcaraz) to get more information about her and the family, because she cannot remember details. I called them at home ([phone]). I spoke to them both. This sister has cardiomyopathy with normal coronary arteries and has a BiV ICD and another sister has a "stiff heart" and several uncles plus their dad had heart attacks. We did an Echo because of the VTach which showed normal LVEF but moderate MVP and severe MR We checked troponins and these were OK, also checked that her potassium and magnesium are within normal range. Continue to monitor on telemetry. She complained of palpitations this morning but there was no concordant arrhythmia. Strictly sinus on the telemetry strip. Watch Mg and K. (5) Elevated LFTs Conclusion/Plan: She admitted to 2 glasses of wine every night and thinks maybe she has had shaky withdrawal symptoms sometimes. This is likely the cause of increased LFT. They have slightly worsened during her stay. Alternatively, the increased LFTs could be from right heart overload related to her MVP with probable significant longstanding MR. Laboratory Tests 01/25/22 01/26/22 01/27/22 05:56 06:09 05:17 AST 67 H 79 H 127 H ALT 66 H 86 H 149 H Alkaline Phosphatase 142 H 141 H 133 H The Echo was done 01/24 and did not show RV failure. (6) Alcohol use Conclusion/Plan: She admitted to 2 glasses of wine every night and thinks maybe she has had shaky withdrawal symptoms sometimes. Her LFTs and MCV are elevated. Will started a scheduled dose of Librium 10 mg bid, to prevent alcohol withdrawal and to help her sleep. She is on a CIWA protocol and as needed Ativan IV. Her CIWA score is running 3. Will follow LFTs intermittently. Her twin sister, Juana, and Juana's Emigdio Alcaraz told me more information about the pt: They feel that the patient is an alcoholic. She probably drinks more than 4 glasses of wine a day. They "know not to call her after 2 PM because she is incoherent when speaking on the phone". Both the patient and the patient's drink heavily, they said. Laboratory Tests 01/27/22 05:17 Vitamin B12 297 Folate 4.27 L On thiamine and vitamin. (7) MVP (mitral valve prolapse) Conclusion/Plan: She has a loud systolic murmur. Significant mitral regurgitation due to mitral valve prolapse was seen on her last Echo which was done here over 5 years ago. She has no peripheral edema but does have increased LFTs which could be from right heart overload. An Echo was done, which showed moderate MVP with severe MR. This definitely needs Cardiology management after discharge, to determine timing of mitral valve repair. Needing Cardiology going forward was discussed with the pt and also with sister and brother in law. (8) Poor memory Conclusion/Plan: This developed after she had a craniotomy and needed cerebral aneurysms clipped (or coils placed). She relies on her and other family members for details and keeps a lot of things written down she said. She gave previous hospitalist permission to call her twin sister and sister's (Juana and Emigdio Alcaraz) to get more information about her and the family because she cannot remember details. (9) Tobacco use Conclusion/Plan: She is a heavy smoker of 2PPD. Importance of smoking cessation was discussed with the patient at admission She is getting a nicotine patch while she is here. She reported today that the Nicotine patch is helping.
[2022-01-27] MEDS: MONTELUKAST 10 MG TABLET PO SCH (20:12)
[2022-01-27] MEDS: guaiFENesin/CODEINE 5 ML UDC PO PRN (20:55)
[2022-01-27] MEDS: BENZOCAINE/MENTHOL LOZENGE MM PRN (20:55)
[2022-01-28] MEDS: BENZOCAINE/MENTHOL LOZENGE MM PRN (01:46)
[2022-01-28 05:14] LABS: BASOPHILS % (AUTO) 0.3 %; EOSINOPHILS # (AUTO) 0.1 10^3/uL (0.0-0.7); EOSINOPHILS % (AUTO) 0.6 %; HCT - HEMATOCRIT 40.7 % (37.0-47.0); HGB - HEMOGLOBIN 13.5 g/dL (12.0-16.0); LYMPHOCYTES # (AUTO) 2.4 10^3/uL (1.5-3.5); LYMPHOCYTES % (AUTO) 22.3 %; MEAN CORPUSCULAR HEMOGLOBIN 35.2 pg (27.0-31.0); MEAN CORPUSCULAR HGB CONC 33.2 g/dL (32.0-36.0); MEAN PLATELET VOLUME 10.5 fL (7.9-10.8); MONOCYTES # (AUTO) 0.9 10^3/uL (0.0-1.0); MONOCYTES % (AUTO) 8.2 %; NEUTROPHILS # (AUTO) 7.3 10^3/uL (1.5-6.6); NEUTROPHILS % (AUTO) 67.3 %; PLT - PLATELET COUNT 240 10^3/uL (130-450); RED BLOOD COUNT 3.84 10^6/uL (4.20-5.40); RED CELL DISTRIBUTION WIDTH 13.9 % (12.0-15.0); WHITE BLOOD COUNT 10.9 x10^3/uL (4.8-10.8)
[2022-01-28 05:24] LABS: CALCIUM 8.7 mg/dL (8.5-10.3); CREATININE 0.6 mg/dL (0.4-1.0); POTASSIUM 3.3 mmol/L (3.5-5.0)
[2022-01-28] MEDS: BUDESONIDE 0.5 MG/2 ML NEB INH SCH ×3 (07:24→19:22)
[2022-01-28] MEDS: IPRATROPIUM/ALBUTEROL 3 ML NEB INH SCH ×5 (07:25→19:22)
[2022-01-28] MEDS ORDERED: POTASSIUM CHLORIDE 20 MEQ TABLET PO ONE (08:27)
[2022-01-28 08:59] LABS: ALBUMIN 3.3 g/dL (3.2-5.5); BILIRUBIN,DIRECT 0.1 mg/dL (0.1-0.5); BILIRUBIN,TOTAL 0.4 mg/dL (0.2-1.0); TOTAL PROTEIN 6.6 g/dL (6.7-8.2)
[2022-01-28] MEDS: PRENATAL VITAMIN TABLET PO SCH (09:04)
[2022-01-28] MEDS: guaiFENesin 600 MG TABLET PO SCH ×2 (09:04→22:23)
[2022-01-28] MEDS: NICOTINE 14 MG PATCH TOP SCH (09:04)
[2022-01-28] MEDS: THIAMINE 100 MG TABLET PO SCH (09:04)
[2022-01-28] MEDS: SODIUM CHLORIDE FLUSH 0.9% 10 ML SYRINGE IVP SCH ×2 (09:05→17:33)
[2022-01-28] MEDS: ENOXAPARIN 40 MG/0.4 ML SYRINGE SUBQ SCH (09:05)
[2022-01-28] MEDS: chlordiazePOXIDE 5 MG CAPSULE PO SCH ×2 (09:15→22:23)
[2022-01-28] MEDS: guaiFENesin/CODEINE 5 ML UDC PO PRN (09:19)
[2022-01-28] MEDS: MONTELUKAST 10 MG TABLET PO SCH (22:23)
[2022-01-29] MEDS: BENZOCAINE/MENTHOL LOZENGE MM PRN (00:30)
[2022-01-29] MEDS: guaiFENesin/CODEINE 5 ML UDC PO PRN (00:30)
[2022-01-29] MEDS: SODIUM CHLORIDE FLUSH 0.9% 10 ML SYRINGE IVP SCH ×2 (00:31→09:44)
--- NOTE | 2022-01-29 02:52 | Ultrasound Report ---
PROCEDURE: Abdomen Complete INDICATIONS: rising lft TECHNIQUE: Real-time scanning was performed of the abdominal and retroperitoneal organs, with image documentatio n. COMPARISON: MRI abdomen 12/05/2020, CT abdomen pelvis 10/31/2020. FINDINGS: Liver: Liver appears enlarged with heterogeneous increased hepatic echogenicity and coarse sonograph ic echotexture consistent with fatty infiltration. Main portal vein appears patent with hepatopedal f low. Gallbladder: No gallstones or gallbladder wall thickening. There is suggestion of trace pericholecyst ic fluid. No reported sonographic Bradford sign. Biliary ducts: Intrahepatic bile ducts are non-dilated. Extrahepatic bile duct caliber measures 4 m m. Normal is 6-7 mm or less in diameter, or 10 mm or less post-cholecystectomy. Pancreas: Not well seen sonographically. Spleen: Spleen is normal in size and homogeneous in echotexture. Kidneys: Right kidney measures 12.1 cm long; left kidney measures 12 cm long. No hydronephrosis or definite nephrolithiasis. No solid masses. Aorta: Visualized aorta is normal in caliber at less than 3 cm. Iliacs: Proximal common iliac arteries are normal in caliber at less than 2.5 cm. IVC: Intrahepatic inferior vena cava is patent. Miscellaneous: There is minimal fluid in the left upper quadrant. IMPRESSION: 1. Heterogeneous increased hepatic echogenicity compatible with hepatic steatosis redemonstrated. 2. No definite evidence of cholecystitis. 3. Minimal free fluid in the left upper quadrant and adjacent to the gallbladder suggestive of minima l ascites. Reviewed by: Angel Nunez MD on 01/29/2022 2:51 AM PST Approved by: Agnel Nunez MD on 01/29/2022 2:51 AM PST Station ID: [id number]
[2022-01-29 04:08] LABS: HBsAG SCREEN Negative (Negative); HCV AB <0.1 s/co ratio (0.0-0.9); HEPATITIS B CORE IGM AB Negative (Negative)
[2022-01-29] MEDS: IPRATROPIUM/ALBUTEROL 3 ML NEB INH SCH ×2 (07:01→11:18)
[2022-01-29] MEDS: BUDESONIDE 0.5 MG/2 ML NEB INH SCH (07:01)
[2022-01-29] MEDS: chlordiazePOXIDE 5 MG CAPSULE PO SCH (09:43)
[2022-01-29] MEDS: guaiFENesin 600 MG TABLET PO SCH (09:43)
[2022-01-29] MEDS: PRENATAL VITAMIN TABLET PO SCH (09:43)
[2022-01-29] MEDS: THIAMINE 100 MG TABLET PO SCH (09:43)
[2022-01-29] MEDS: ENOXAPARIN 40 MG/0.4 ML SYRINGE SUBQ SCH (09:43)
[2022-01-29] MEDS: NICOTINE 14 MG PATCH TOP SCH (09:44)
--- NOTE | 2022-01-29 11:30 | Discharge Plan ---
Discharge Plan Problem Reviewed?: Yes Disposition: Home, Self Care Condition: Stable Prescriptions: Pnv No.95/Ferrous Fum/Folic AC [ Caplet] 1 each PO DAILY #30 tablet Budesonide/Formoterol Fumarate [Symbicort 160-4.5 Mcg Inhaler] 10.2 gm IH BID #1 gm Thiamine [Vitamin B-1] 100 mg PO DAILY #30 tab Diet: Regular Activity Restrictions: Activity as Tolerated Shower Restrictions: No Driving Restrictions: No Health Concerns: You presented to our emergency room with a history of 2 packs/day smoking as well as 2 weeks of cough, white phlegm, and you are not getting better in spite of antibiotics with Zithromax and steroids for 5 days. You were also given a prescription for albuterol but you were not using it. When you came back to the emergency room you had a low oxygen level and chest x-ray did not have pneumonia but you had severe asthma. 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 You have actually been stable for discharge for the last 2 to 3 days but you had no power in your home. As such there is no way to get an oxygen concentrator to be safely used at your home without power. You now have power and can go home on oxygen. During your stay you had 2 separate episodes where your heart beat very fast and we call a "wide-complex tachycardia". Both of your sisters have heart disease. We would strongly recommend that you have your primary care provider refer you to a electrical sign wirer. You will need a rhythm analysis. Plan of Treatment: You have completed steroids, nebulizers, and antibiotics. I would now like to send you home on medicines to help with the coughing and wheezing. 1. A long-acting inhaled bronchodilator as well as a long-acting inhaled steroid. He comes together in 1 Diskus. You take 1 puff twice a day. Make sure you rinse your mouth out after each use to avoid getting yeast of your mouth. 2. Albuterol inhaler to be used as needed for wheezing. You can use it up to 5 times a day. 3. Please see your primary care provider in follow-up, Neli Holguin, in the next 1 to 2 weeks. 4. Please stop smoking. 5. You will be sent home on oxygen. Hopefully will be temporary. Hopefully your lungs will recover and your wheezing will get better and better for you to get off oxygen. 6. Because of excessive alcohol use, you are low and your folic acid and B vitamins. As such we are requesting you take a vitamin every day as well as thiamine tablet every day. Please refrain from drinking. 7. Please see a electrical sign wirer in follow-up for your arrhythmia that we saw during your stay. Have your primary care provider refer you. Care Goals: To have control of your wheezing and coughing. And started to be able to breathe normally to accomplish normal activities. Assessment: Patient is alert, oriented, states she will follow through No Smoking: If you smoke, Please STOP! Call for help. Follow-up with: Fatimah Holguin ARNP [Credentialed Staff Provider] -
--- NOTE | 2022-01-29 11:38 | DISCHARGE SUMMARY ---
Discharge Summary Admit Date: 01/23/22 Discharge Date: 01/29/22 Discharging Provider: Joelle Sanchez MD Primary Care Provider: MELANIE Park Code Status: Attempt Resuscitation Condition at Discharge: Stable - DIAGNOSES Discharge Diagnoses with Status of Each Condition: 1. Acute respiratory failure with hypoxia due to #2 2. COPD with exacerbation 3. Tobacco abuse 4. Alcohol abuse 5. Nonsustained V. tach 6. Elevated liver function studies 7. Moderate mitral valve prolapse with severe mitral regurgitation 8. 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 Hepatic steatosis - HPI History of Present Illness: This is a 71-year-old white female with a history of brain surgery (cerebral aneurysm clips 4 yrs ago) which left her with a poor memory. She is prescribed to take a statin but does not take it. She has a history of smoking but no documented COPD by testing done here 7 years ago. She has a history of a heart murmur and Echo here in 2014 showed mitral valve prolapse with mitral regurgitation. The patient noticed SOB when there was smoke in the air this late fall. Then she developed a barking cough for the last 1-2 weeks, and white sputum production and 5 days ago went to a walk-in clinic to be seen for this. She tested COVID- negative and flu negative. Her chest x-ray was unremarkable except hyperinfl ated. She was given a Z-omar and prednisone prescriptions as well as albuterol. The symptoms have not improved despite taking the Z-Omar and prednisone. She hardly use the albuterol she said, because it did not help. With continued barking cough, hoarseness, insomnia and shortness of breath she presented back to the walk in clinic today. Her oxygen saturation was noted to be 84% on room air and she was sent to the ED. She received a nebulizer in the ED with noticable improvement, she said, and received IV Decadron. Her saturation on room air is 85%. She was put on supplemental oxygen at 2L, her O2 sat is 93%. Her chest x-ray again shows no infiltrates but is hyperinflated. BNP 200. COVID is negative, RSV is negative, influenza negative. She has unremarkable WBC and electrolytes but elevated LFTs and elevated MCV. The patient was presented to the Hospitalist team by the ED provider, to admit her for managing a COPD exacerbation with acute respiratory failure causing hypoxia. History - Past Medical History Cardiovascular: reports: None, Murmur Respiratory: reports: None (No prior diagnosis of COPD but does have a long smoking history. Does have exertional dyspnea at times prior to this illness. Presumed COPD at walk-in 4 days ago.), COPD (likely has COPD, wheezes "often", but not formally Dx.) Neuro: reports: Other (prior brain surgery (clipping of aneurysm) several years ago.) Endocrine/Autoimmune: reports: None GI: reports: None : reports: None HEENT: reports: Chronic vision loss, Other Psych: reports: Depression, Anxiety Musculoskeletal: reports: None MRSA Hx?: No - Past Surgical History Ortho: reports: ACL reconstruction Neuro: reports: Craniotomy - CONSULTS | PROCEDURES Procedures: Chest x-ray with mild reactive airway disease indicated by bronchial vascular markings in the bilateral hilar region and mild bronchial wall thickening. No focal infiltrate. No pleural effusion or pneumothorax. Abdominal ultrasound done for rising LFTs. It was compared to MRI of the abdomen December 05, [address] abdomen and pelvis October 31, 2020. Liver is enlarged and heterogeneous with increased hepatic echogenicity and coarse sonographic echotexture consistent with fatty infiltration. Portal vein patent with hepatopetal flow. Intrahepatic bile ducts were not dilated. Extrahepatic bile ducts are nondilated. Pancreas is normal. Hepatitis panel for A, B, and C are negative. - HOSPITAL COURSE Hospital Course: The patient was treated with empiric antibiotics. She was started on IV steroids and gradually tapered. Bronchodilators were short acting in the form of albuterol as well as Perforomist and budesonide. During her stay she was noted to have 15-25 beats of nonsustained V. tach on 2 separate episodes. Both times the patient was asymptomatic. EKG was without acute ST-T wave changes and troponins were negative. She does complain of intermittent palpitations. Yet when she was having palpitations, telemetry was normal sinus rhythm without tachycardia. Family history is positive for cardiomyopathy and her sister with normal coronary arteries and she has a biventricular ICD. A second sister has a "stiff heart". A bedside echocardiogram was done by the hospitalist who is a board-certified supervisor beet end on January 24. She has moderate bilateral atrial enlargement. EF is 60%. Myxomatous thickening of both mitral leaflets is seen with moderate mitral valve prolapse but no flail portions. Doppler reveals severe mitral regurgitation, eccentric, laterally directed and curled around and feels the entire dilated left atrium. She was medically stable for discharge by January 26. However the power was out in her neighborhood and she is not able to do an oxygen concentrator without electricity. As such she was kept in the hospital for safety sake. She was hypoxic at rest on room air. O2 sats were 86%. With 2 L/min on nasal cannula her O2 sats improved to 92% at rest. With exertion using 2 L/min nasal cannula her O2 sats were 87%. I needed to increase her nasal cannula to 3 L/min to cover her with exertion so that her O2 sats improved to 93%. I am ordering home oxygen at 2 L/min at rest and 3 L/min with exertion to treat this. The diagnosis will be COPD. This is a new diagnosis for her. She feels that she is never had a diagnosis of COPD before. She is instructed to please follow-up with a supervisor beet end for her arrhythmia and mitral regurgitation. She also needs to stop smoking and drinking. I am asking her to follow-up with her primary care provider in the next 1 to 2 weeks. Temperature is 36.4. Heart rate 77. Respirations 18. Currently requiring 2 L to maintain O2 sats at 91 to 92% at rest. She is 5 feet 6 inches tall, weighs 59 kg. She has an occasional cough that is nonproductive. Prolonged and exhalation phase but no wheezing today. Regular rate and rhythm without tachypnea. Greater than 30 minutes was spent coordinating discharge. - ALLERGIES Allergies/Adverse Reactions: Allergies Allergy/AdvReac Type Severity Reaction Status Date / Time No Known Drug Allergies Allergy Verified 01/23/22 13:50 - MEDICATIONS Home Medications: Ambulatory Orders Medication Instructions Recorded Confirmed Albuterol Sulf [Ventolin Hfa 2 puffs INH Q6H PRN 01/23/22 01/23/22 Inhaler] Benzonatate [Tessalon] 100 - 200 mg PO Q8H PRN 01/23/22 01/23/22 Melatonin 1 mg PO HS 01/23/22 01/23/22 Budesonide/Formoterol Fumarate 10.2 gm IH BID #1 gm 01/29/22 [Symbicort 160-4.5 Mcg Inhaler] Pnv No.95/Ferrous Fum/Folic AC 1 each PO DAILY #30 tablet 01/29/22 [ Caplet] Thiamine [Vitamin B-1] 100 mg PO DAILY #30 tab 01/29/22 - LABS Result Diagrams: 01/28/22 05:01 01/28/22 05:01
--- NOTE | 2022-01-29 12:25 | PROVIDER PROGRESS NOTE ---
Subjective - Prog Note Date Prog Note Date: 01/28/22 Prog Note Time: 12:23 - Subjective Pt reports feeling: Improved Subjective: Still has no power at her house. As such we cannot discharge her until she can get an oxygen concentrator plugged in Objective - Vital Signs/Intake & Output Reviewed Vital Signs: Yes Vital Signs: Vital Signs x48h Intake & Output: Intake & Output 01/26/22 01/27/22 01/28/22 23:59 23:59 23:59 Intake Total 1960 1500 500 Balance 1960 1500 500 - Objective General Appearance: positive: Alert, Other ( for safety reasons sitting up in bed. Dry cough. Intermittent. Comfortable as she sits and talks) Eyes Bilateral: positive: PERRL, EOMI ENT: positive: No signs of dehydration Neck: positive: No JVD. negative: Stiff neck Respiratory: positive: No respiratory distress, Rhonchi. negative: Wheezes, Rales Cardiovascular: positive: Regular rate & rhythm Abdomen: positive: Non-tender, No organomegaly, Nml bowel sounds, No distention Skin: positive: Warm, Dry Neurologic/Psychiatric: positive: Oriented x3, CN's nml (2-12), Motor nml - Lab Results Fish Bones: 01/28/22 05:01 01/28/22 05:01 Other Labs: Lab Results x24hrs 01/28/22 Range/Units 11:44 Hepatitis A IgM Ab Negative (Negative) Hep Bs Antigen Negative (Negative) Hep B Core IgM Ab Negative (Negative) Hepatitis C Antibody <0.1 (0.0-0.9) s/co ratio Hepatitis C Interp Comment (.) Assessment/Plan - Problem List (1) Acute respiratory failure with hypoxia Impression: The impression is that her hypoxia is caused by her COPD exacerbation. Will continue with supplemental O2 and treat the underlying COPD, keeping sats >88%. Currently requiring 2-1/2 L to maintain O2 sats at 91%. She is at baseline from what I can see on exam. She still anxious with shortness of breath at times. But is sitting up, feeding herself, walks to the bathroom. Does desaturate on room air. However we cannot send her home yet be cause she has no power at her home and she needs a oxygen concentrator to be plugged in (2) COPD exacerbation Conclusion/Plan: Patient had severe wheezing and very poor air movement at admission, which has improved slightly to minimal wheezing and slightly improved air mvm 01/25 AND 01/26. There were no infiltrates on chest x-ray but she has bronchitis by cli nical picture. She is on inhaled Pulmicort, ceftriaxone, Mucinex 600 twice daily, guaifenesin with codeine every 6 hours as needed, DuoNeb as needed, DuoNeb added 4 times daily dosing methylprednisolone 40 mg IV push 3 times daily, Singulair, nicotine patch. Steroids are making her emotional so they were tapered ON 01/26 from 80 mg 3 times daily to 40 mg 3 times daily. I stopped them 01/27 and watch her for rebound wheezing, and none occurred. Ready for dc today but she has no power at home. The impression is that her hypoxia is caused by her COPD exacerbation. Will continue with supplemental O2 and treat the underlying COPD, keeping sats >88%. Continue treatment of her COPD exacerbation Once power on at her house I will dc and we will do an oxygen desat test on her. (3) Dizziness Conclusion/Plan: Wooziness was a new complaint on 01/25. During one of her episodes orthostatic vital signs were done and were completely WNL. I suspect it is the new high dose steroids along with codeine in her cough suppressants, that are making her "woozy", since it is not lightheadedness or near syncope. (4) VTach Conclusion/Plan: On 01/24, she had a 25-beat run of monomorphic VT at a rate of 115. She did not feel it; she was walking to the bathroom at the time, with the aide of her RN. She then disclosed to me that she gets palpitations that occur at any time, they do not cause dizziness and she has never had syncope. She has never had them worked up. She also reminded me that heart disease runs in the family (father had multiple heart attacks, 2 sisters have heart disease). She gave me permission to call her twin sister and this sister's (Juana and Emigdio Alacraz) to get more information about her and the family, because she cannot remember details. I called them at home ([phone]). I spoke to them both. This sister has cardiomyopathy with normal coronary arteries and has a BiV ICD and another sister has a "stiff heart" and several uncles plus their dad had heart attacks. We did a bedside Echo because of the VTach which showed normal LVEF but moderate MVP and severe MR We checked troponins and these were OK, also checked that her potassium and magnesium are within normal range. Continue to monitor on telemetry. She complained of palpitations 01/27 but there was no concordant arrhythmia. Strictly sinus on the telemetry strip. Watch Mg and K. (5) Elevated LFTs Conclusion/Plan: She admitted to 2 glasses of wine every night and thinks maybe she has had shaky withdrawal symptoms sometimes. This is likely the cause of increased LFT. They have slightly worsened during her stay. Alternatively, the increased LFTs could be from right heart overload related to her MVP with probable significant longstanding MR. Laboratory Tests 01/25/22 01/26/22 01/27/22 05:56 06:09 05:17 AST 67 H 79 H 127 H ALT 66 H 86 H 149 H Alkaline Phosphatase 142 H 141 H 133 H The Echo was done 01/24 and did not show RV failure. (6) Alcohol use Conclusion/Plan: She admitted to 2 glasses of wine every night and thinks maybe she has had shaky withdrawal symptoms sometimes. Her LFTs and MCV are elevated. Will started a scheduled dose of Librium 10 mg bid, to prevent alcohol withdrawal and to help her sleep. She is on a CIWA protocol and as needed Ativan IV. Her CIWA score is running 3. Will follow LFTs intermittently. Her twin sister, Juana, and Juana's Emigdio Alcaraz told me more information about the pt: They feel that the patient is an alcoholic. She probably drinks more than 4 glasses of wine a day. They "know not to call her after 2 PM because she is incoherent when speaking on the phone". Both the patient and the patient's drink heavily, they said. Laboratory Tests 01/27/22 05:17 Vitamin B12 297 Folate 4.27 L On thiamine and vitamin. (7) MVP (mitral valve prolapse) Conclusion/Plan: She has a loud systolic murmur. Significant mitral regurgitation due to mitral valve prolapse was seen on her last Echo which was done here over 5 years ago. She has no peripheral edema but does have increased LFTs which could be from right heart overload. An Echo was done, which showed moderate MVP with severe MR. This definitely needs Cardiology management after discharge, to determine timing of mitral valve repair. Needing Cardiology going forward was discussed with the pt and also with sister and brother in law. (8) Poor memory Conclusion/Plan: This developed after she had a craniotomy and needed cerebral aneurysms clipped (or coils placed). She relies on her and other family members for details and keeps a lot of things written down she said. She gave previous hospitalist permission to call her twin sister and sister's (Juana and Emigdio Alcaraz) to get more information about her and the family because she cannot remember details. (9) Tobacco use Conclusion/Plan: She is a heavy smoker of 2PPD. Importance of smoking cessation was discussed with the patient at admission She is getting a nicotine patch while she is here. She reported today that the Nicotine patch is helping.
[2022-01-29 13:10] VITALS: BP 125/55
== END 2022-01-29 14:15 | disposition home or self-care (01) | DRG 189 ==
LOC: EDUNIT# → ED 13:35 → MS2 16:41
PROVIDERS: ADMIT Internal Medicine; ATTEND Specialist
DX: J44.0 Chronic obstructive pulmonary disease with (acute) lower respiratory infection (principal); J22 Unspecified acute lower respiratory infection; F17.200 Nicotine dependence, unspecified, uncomplicated; J44.1 Chronic obstructive pulmonary disease with (acute) exacerbation; R09.02 Hypoxemia; Z20.822 Contact with and (suspected) exposure to COVID-19; J96.01 Acute respiratory failure with hypoxia; I47.20 Ventricular tachycardia, unspecified; J43.9 Emphysema, unspecified; F17.210 Nicotine dependence, cigarettes, uncomplicated; F10.10 Alcohol abuse, uncomplicated; R79.89 Other specified abnormal findings of blood chemistry; I34.1 Nonrheumatic mitral (valve) prolapse; I34.0 Nonrheumatic mitral (valve) insufficiency; K76.0 Fatty (change of) liver, not elsewhere classified; T50.996A Underdosing of other drugs, medicaments and biological substances, initial encounter; F32.A Depression, unspecified; F41.9 Anxiety disorder, unspecified; R41.3 Other amnesia; Z91.128 Patient's intentional underdosing of medication regimen for other reason; Z98.890 Other specified postprocedural states; Z82.49 Family history of ischemic heart disease and other diseases of the circulatory system; R42 Dizziness and giddiness; T38.0X5A Adverse effect of glucocorticoids and synthetic analogues, initial encounter; T40.2X5A Adverse effect of other opioids, initial encounter; Y92.230 Patient room in hospital as the place of occurrence of the external cause; R25.1 Tremor, unspecified; R00.2 Palpitations; T48.6X6A Underdosing of antiasthmatics, initial encounter
CPT/HCPCS: 36415; 71045; 76700; 80048; 80053; 80076; 82607; 82746; 83690; 83735; 83880; 84100; 84484; 85025; 85610; 86705; 86709; 86803; 87340; 87633; 93005; 94640; 94761; 96374; 99284; 99285; A9270; J1650; J7626

== ENCOUNTER 2022-04-21 12:47 | Outpatient (CLI) | payer MEDICARE | END 2022-04-21 12:48 | disposition home or self-care (01) | LOC: DI 12:47 | PROVIDERS: ATTEND Nurse Practitioner | DX: I47.29 Other ventricular tachycardia (principal); I34.0 Nonrheumatic mitral (valve) insufficiency; I34.1 Nonrheumatic mitral (valve) prolapse | CPT/HCPCS: 93306 ==

== ENCOUNTER 2023-02-12 12:43 | Outpatient (CLI) | payer MEDICARE | END 2023-02-12 23:59 | disposition short-term general hospital (02) | LOC: EMS 12:43 | DX: R53.1 Weakness (principal); R06.02 Shortness of breath; R42 Dizziness and giddiness; R05.9 Cough, unspecified; R07.89 Other chest pain | CPT/HCPCS: A0425; A0429 ==

== ENCOUNTER 2023-02-25 10:46 | Outpatient (CLI) | payer MEDICARE | END 2023-02-25 10:47 | disposition home or self-care (01) | LOC: DI 10:46 | PROVIDERS: ATTEND Internal Medicine Cardiovascular Disease | DX: I31.39 Other pericardial effusion (noninflammatory) (principal) | CPT/HCPCS: 93306 ==

== ENCOUNTER 2023-11-15 08:00 | Outpatient (CLI) | payer MEDICARE ==
--- NOTE | 2023-11-16 09:26 | XRAY Report ---
PROCEDURE: Chest 2V INDICATIONS: COVID19 INFECTION TECHNIQUE: 2 views of the chest were acquired. COMPARISON: 01/19/2022 FINDINGS: Surgical changes and devices: Median sternotomy changes. Lungs and pleura: Mild coarsening of interstitial markings. Mild pulmonary hyperinflation. No acute consolidation, effusion, or pneumothorax. Mediastinum: Mediastinal contours appear normal. Heart size is normal. Bones and chest wall: No suspicious bony lesions. Overlying soft tissues appear unremarkable. IMPRESSION: Mildly hyperinflated lungs suggesting emphysema. Interval median sternotomy. No acute consolidations. Reviewed by: Destiny Fabian MD on 11/16/2023 9:24 AM PDT Approved by: Destiny Fabian MD on 11/16/2023 9:24 AM PDT Station ID: [id number]
== END 2023-11-15 23:59 | disposition home or self-care (01) ==
LOC: DI.S 08:00
PROVIDERS: ATTEND Registered Nurse
DX: U07.1 COVID-19 (principal)

== ENCOUNTER 2023-11-30 09:29 | Outpatient (CLI) | payer MEDICARE ==
--- NOTE | 2023-11-30 14:42 | CT Report ---
PROCEDURE: Lung Cancer Screen INDICATIONS: HIST OF SMOKING TECHNIQUE: A CT scan of the chest was performed. Intravenous contrast media was not administered. Images were re corded and evaluated at appropriate window settings. Reformats: axial MIP of the chest, coronal and s agittal. For radiation dose reduction, the following was used: automated exposure control, adjustment of mA and/or kV according to patient size. COMPARISON: 08/20/2016. FINDINGS: Image quality: Excellent. Prior cancer history: Unknown Lungs: Pulmonary nodules: 1.6 mm pulmonary nodule in the right upper lobe (4:61), unchanged from prior exam. 2.5 mm pulmonary nodule in the left lower lobe (4:87), unchanged from prior exam. 3.5 mm, subpleural pulmonary nodule in the left upper lobe (4:68), unchanged from prior exam. 4.4 mm pulmonary nodule in the left lower lobe along the fissure (4:93), unchanged. 5.Additional scattered sub-6 cm pulmonary nodules, grossly unchanged. No pleural effusion or pneumothorax. No pulmonary edema or focal consolidation. Soft tissue/mediastinum/heart: Heart is normal in size. No pericardial effusion.Moderate LAD calcific ation. Mild calcification of the aortic and mitral annulus. Moderate atherosclerotic calcification of the thoracic aorta. No thoracic aortic aneurysm. No mediastinal, hilar, or axillary lymphadenopathy . Visualized portion of the upper abdomen:Unremarkable Bones: Chronic deformity of right posterior ribs. IMPRESSION: Multiple pulmonary nodules, measuring up to 6 mm, unchanged from 2017, favoring benign gi delia stability. Lung RAD: 2 - Benign. Recommendation: Continue annual screening in 12 Months with LDCT Reviewed by: Kim Lowery MD on 11/30/2023 2:41 PM PDT Approved by: Kim Lowery MD on 11/30/2023 2:41 PM PDT Station ID: [id number]
== END 2023-11-30 09:30 | disposition home or self-care (01) ==
LOC: DI 09:29
PROVIDERS: ATTEND Registered Nurse
DX: Z12.2 Encounter for screening for malignant neoplasm of respiratory organs (principal); R91.8 Other nonspecific abnormal finding of lung field; Z87.891 Personal history of nicotine dependence